=== PATIENT | female | born 1965 | race Caucasian/White ===

== ENCOUNTER 2019-12-28 09:16 | Outpatient (REF) | payer BC, SELFPAY ==
[2019-12-28 11:45] LABS: Cholesterol 188 mg/dL; HDL Cholesterol 57 mg/dL; LDL Cholesterol Calculated 109 mg/dl; Triglycerides 113 mg/dL
[2019-12-28 11:56] LABS: HIV AB/AG Nonreactive (Nonreactive); HIV Num 1 0.05 S/CO (0.00-0.99); ~HepC Num1 0.32 S/CO (0.00-0.79); ~Hepatitis C Antibody Nonreactive (Nonreactive)
[2019-12-28 11:58] LABS: Thyroid Stimulating Hormone 0.76 mIU/mL (0.32-4.0)
== END 2019-12-28 09:17 | disposition home or self-care (01) ==
LOC: HO.HMGCLDS 09:16
PROVIDERS: PCP Internal Medicine; Visit Provider Internal Medicine
DX: Z82.49 Family history of ischemic heart disease and other diseases of the circulatory system (principal); Z11.59 Encounter for screening for other viral diseases
CPT/HCPCS: 80061; 84443; 86803; 87389

== ENCOUNTER 2020-01-04 12:38 | Outpatient (REF) | payer BC, SELFPAY | END 2020-01-04 12:39 | disposition home or self-care (01) | LOC: HO.HMGCLDS 12:38 | PROVIDERS: PCP Internal Medicine; Visit Provider Internal Medicine | DX: Z20.828 Contact with and (suspected) exposure to other viral communicable diseases (principal) | CPT/HCPCS: C9803; U0003 ==

== ENCOUNTER 2021-02-10 07:45 | Outpatient (REF) | payer BC, SELFPAY ==
[2021-02-10 11:30] LABS: MANUAL DIFF FLAG NO
[2021-02-10 11:40] LABS: Basophils Percent Auto 0.5 % (0-2); Eosinophils Absolute Auto 0.1 X10*3/uL (0.0-0.4); Eosinophils Percent Auto 3.4 % (0-4); Hematocrit 40.2 % (37.0-47.0); Hemoglobin 12.4 g/dl (12.0-16.0); Lymphocytes Absolute Auto 1.4 X10*3/uL (1.2-4.9); Lymphocytes Percent Auto 36.6 % (20-40); Mean Corpuscular HGB Conc 30.8 g/dl (31.0-35.0); Mean Corpuscular Volume 77.8 fL (80.0-98.0); Monocytes Absolute Auto 0.4 X10*3/uL (0.1-1.2); Monocytes Percent Auto 9.2 % (2-11); Neutrophils Absolute Auto 1.9 x10*3/uL (2.0-8.3); Neutrophils Percent Auto 50.3 % (45-73); Platelet Count 242 X10*3/uL (160-400); Red Blood Count 5.17 X10*6/uL (4.20-5.50); Red Cell Distribution Width 14.5 % (11.0-16.0); White Blood Count 3.8 X10*3/uL (4.8-10.8)
[2021-02-10 12:00] LABS: Alanine Aminotransferase 29 U/L (0-31); Albumin Level 4.1 g/dL (3.5-5.0); Alkaline Phosphatase 101 U/L (39-117); Anion Gap 10 (12-20); Aspartate Amino Transferase 27 U/L (5-31); Bilirubin Total 0.5 mg/dL (0.0-1.0); Blood Urea Nitrogen 14 mg/dL (9-16); Calcium 9.3 mg/dL (8.4-10.2); Carbon Dioxide 30 mmol/L (22-29); Chloride 105 mmol/L (96-108); Cholesterol 206 mg/dL; Estimated Glomerular Filt Rate > 60; Glucose Random 92 mg/dL (60-115); HDL Cholesterol 57 mg/dL; LDL Cholesterol Calculated 133 mg/dl; Potassium 4.9 mmol/L (3.3-5.1); Sodium 140 mmol/L (135-145); Total Protein 6.9 g/dL (6.5-8.0); Triglycerides 82 mg/dL
[2021-02-10 12:12] LABS: Thyroid Stimulating Hormone 0.95 uIU/mL (0.32-4.0)
== END 2021-02-10 07:46 | disposition home or self-care (01) ==
LOC: HO.HMGCLDS 07:45
PROVIDERS: PCP Internal Medicine; Visit Provider Internal Medicine
DX: E78.00 Pure hypercholesterolemia, unspecified (principal); G43.709 Chronic migraine without aura, not intractable, without status migrainosus
CPT/HCPCS: 36415; 80053; 80061; 84443; 85025

== ENCOUNTER 2022-01-30 14:07 | Emergency (ER) | payer BC, SELFPAY ==
--- NOTE | ~2022-01-30 | XR_ITS ---
EXAMINATION: XR RIBS, LEFT CLINICAL INFORMATION: Injury with pain COMPARISON: April 07, 2017 TECHNIQUE: PA chest and 3 views of the left ribs FINDINGS: There is no evidence of acute parenchymal disease, pneumothorax, or pleural effusion. Heart normal size. No evidence of pulmonary edema. No acute displaced left rib fractures identified. No destructive bony lesion appreciated. XR/XR ribs LT min 3V w CXR1V IMPRESSION: No acute parenchyma disease within the chest. No acute displaced left rib fracture.
[2022-01-30 14:36] VITALS: BP 121/78; PULSE 72; RESP 18; TEMP 36.4; O2SAT 98; BMI 25.0
--- NOTE | 2022-01-30 14:38 | ED_ITS ---
HPI - General Adult General Chief complaint: General Medical <Rosa Chaves NP - Last Filed: 01/30/22 14:39> Stated complaint: rib pain <Rosa Chaves NP - Last Filed: 01/30/22 14:39> Time Seen by Provider: 01/30/22 15:20 <Rosa Chaves NP - Last Filed: 01/30/22 14:39> Source: patient <SERA Samayoa - Last Filed: 01/30/22 16:22> Mode of arrival: ambulatory <SERA Samayoa - Last Filed: 01/30/22 16:22> Limitations: no limitations <SERA Samayoa Last Filed: 01/30/22 16:22> History of Present Illness HPI narrative: 56yoF presenting to the ER with complaints of left lateral rib cage pain for approximately 1 week. She reports that she was walking up the stairs with her laundry and she has the dog gate that she impacted while she was trying to walk up the stairs and since then she has been having pain especially with deep inspiration and palpation to that area. She denies any other injuries complaints or concerns at this time. <SERA Samayoa - Last Filed: 01/30/22 16:22> MD complaint: Left lateral rib cage pain/injury <SERA Samayoa - Last Filed: 01/30/22 16:22> Onset (ago): week(s) (1) <SERA Samayoa - Last Filed: 01/30/22 16:22> Related Data Home medications: Previous Rx's Medication Instructions Recorded cyclobenzaprine 10 mg tablet 10 mg PO Q8H #14 tabs 01/30/22 naproxen 500 mg tablet 500 mg PO BID PRN pain #14 tabs 01/30/22 <Rosa Chaves NP - Last Filed: 01/30/22 14:39> Allergies/adverse reactions: Allergies Allergy/AdvReac Type Severity Reaction Status Date / Time No Known Allergies Allergy Verified 01/30/22 14:35 <Rosa Chaves NP - Last Filed: 01/30/22 14:39> Review of Systems Review of Systems: Constitutional : No Weight loss, No Fever, No Chills, No Night Sweats, No Fatigue, No Malaise ENT/Mouth : No Hearing loss, No Ear Pain, No Nasal Congestion, No Sinus Pain, No Hoarseness, No sore throat, No Rhinorrhea, No Swallowing Difficulty Eyes: No Eye Pain, No Swelling, No Redness, No Foreign Body, No Discharge, No Vision Changes Cardiovascular : No Chest Pain, No SOB, No Dyspnea on Exertion, No Orthopnea, No Edema, No Palpitations Respiratory : No Cough, No Sputum, No Wheezing, No Smoke Exposure, No Dyspnea Gastrointestinal : No Nausea, No Vomiting, No Diarrhea, No Constipation, No abdominal Pain, No Hematochezia, No Melena Genitourinary : no irregular bleeding, No Dysuria, No Urinary Frequency, No Salomon turia, No Urinary Incontinence, No Urgency, No Flank Pain, No Urinary Flow Changes, No Hesitancy Musculoskeletal : + left lateral rib cage joint pain, No Myalgias, No Joint Swelling Skin : No Skin Lesions, No rash Neuro : No Weakness, No Numbness, No Paresthesias, No Loss of Consciousness, No Dizziness, No Headache Psych : No Anxiety/Panic, No Depression, No SI/HI/AH/VH, No Social Issues, Heme/Lymph: No Bruising, No Bleeding,No Lymphadenopathy Endocrine : No Polyuria, No Polydipsia, No Temperature Intolerance <SERA Samayoa - Last Filed: 01/30/22 16:22> Yes all other systems are reviewed and are negative <SERA Samayoa - Last Filed: 01/30/22 16:22> [facility] Past Medical History Attestation statement: The following information was validated with the patient. <SERA Samayoa - Last Filed: 01/30/22 16:22> Source: old records reviewed and nursing notes reviewed <SERA Samayoa - Last Filed: 01/30/22 16:22> Social History Social History: Social History Advance Directives: No Advance Directives Information Provided: No <Rosa Chaves NP - Last Filed: 01/30/22 14:39> Physical Exam ED Vital Signs: Vital Signs - 24 hr 01/30/22 14:36 Temperature 97.5 F Pulse Rate 72 Respiratory Rate 18 Blood Pressure 121/78 Pulse Oximetry 98 Oxygen Delivery Method Room Air BMI result Body Mass Index 25.0 <Rosa Chaves NP - Last Filed: 01/30/22 14:39> Vital Signs - 24 hr 01/30/22 14:36 Temperature 97.5 F Pulse Rate 72 Respiratory Rate 18 Blood Pressure 121/78 Pulse Oximetry 98 Oxygen Delivery Method Room Air BMI result Body Mass Index 25.0 vital signs have been reviewed as normal and appeared to be correct. Blood pressure normal. Heart rate normal. Respiration rate normal. Temperature normal. Oxygen saturation normal. <SERA Samayoa - Last Filed: 01/30/22 16:22> Appearance: Alert. Oriented X3. No acute distress. Head: Normal external exam. Normocephalic. Atraumatic. Eyes: PERRLA. EOMI. Conjunctiva and sclera normal. Eyelids normal. ENT: Pharynx normal. Uvula midline. Moist mucous membranes. No lesions/ulcerations or masses noted on the tongue. Normal voice. No trismus noted. No drooling noted. No muffled voice noted. Neck: Normal inspection. Neck supple. FROM. No adenopathy. Thyroid Normal. No meningeal signs. CVS: Normal heart rate and rhythm. Heart sound normal. Pulses normal throughout. No murmurs/rales/gallops. Respiratory: No respiratory distress. Painless inspiration. Breath sounds normal. No wheezes/rales/rhonchi noted. Chest patient does have tenderness palpation and ecchymosis to the left lateral lower ribcage with some mild soft tissue swelling. No crepitus is noted. No signs of trauma noted. No accessory muscle usage noted or decreased air movement noted. Abdomen: Soft and nontender. Bowel sounds normal in all 4 quadrants. No distention noted. No organomegaly noted. No visible injury noted. Back: Full range of motion noted. Nontender. No signs of trauma. Skin: Skin warm and dry. Normal skin color. Normal skin turgor. No rashes/lesions/lacerations noted. Extremities: Extremities exhibit normal range of motion and nontender. Neuro: Oriented X 3. No motor deficit. No sensory deficit. Reflexes normal. Normal steady gait. No focal neuro deficits noted. CN's II-XII intact bilaterally? <SERA Samayoa - Last Filed: 01/30/22 16:22> Course Course Course Narrative: This is a rapid medical exam. Deferred additional HPI/ROS/PE to primary provider. Left rib pain after injury 1 week ago. Will check x-rays. VSS. <Rosa Chaves NP - Last Filed: 01/30/22 14:39> Reevaluation(s) Reevaluation #1: X-ray negative for any acute processes. Patient most likely muscular skeletal pain. Will DC home with symptomatic treatment instructions return if any new or worsening symptoms follow up with primary care provider. Patient understands agrees with this plan. <SERA Samayoa - Last Filed: 01/30/22 16:22> Time: 16:22 <SERA Samayoa - Last Filed: 01/30/22 16:22> Medical Decision Making Imaging Data Left ribs and chest x-ray: Attestation: I personally reviewed and interpreted this imaging study as follows: <SERA Samayoa - Last Filed: 01/30/22 16:22> Radiologist's impression: FINDINGS: There is no evidence of acute parenchymal disease, pneumothorax, or pleural effusion. Heart normal size. No evidence of pulmonary edema. No acute displaced left rib fractures identified. No destructive bony lesion appreciated. XR/XR ribs LT min 3V w CXR1V IMPRESSION: No acute parenchyma disease within the chest. ? No acute displaced left rib fracture. <SERA Samayoa - Last Filed: 01/30/22 16:22> Discharge Plan Discharge Clinical Impression: Rib pain on left side <Rosa Chaves NP - Last Filed: 01/30/22 14:39> Patient Disposition: Home, Self-Care <Rosa Chaves NP - Last Filed: 01/30/22 14:39> Instructions: Muscle Strain (ED) <Rosa Chaves NP - Last Filed: 01/30/22 14:39> Prescriptions: New naproxen 500 mg tablet 500 mg PO BID PRN (Reason: pain) Qty: 14 0RF cyclobenzaprine 10 mg tablet 10 mg PO Q8H Qty: 14 0RF <Rosa Chaves NP - Last Filed: 01/30/22 14:39> Referrals: Terry Peoples MD [Primary Care Provider] - 3 days <Rosa Chaves NP - Last Filed: 01/30/22 14:39>
== END 2022-01-30 16:31 | disposition home or self-care (01) ==
PROVIDERS: Emergency Provider Emergency Medicine; PCP Internal Medicine
DX: R07.81 Pleurodynia (principal)
CPT/HCPCS: 71101; 99282; 99283

== ENCOUNTER 2022-05-17 13:02 | Inpatient (IN) | payer BC, MEDICARE, SELFPAY ==
[2022-05-17] VITALS (7 sets, daily range): BP systolic 114–140; BP diastolic 71–98; PULSE 78–150; RESP 16–19; TEMP 36.6–37; O2SAT 95–100; BMI 25.4
--- NOTE | ~2022-05-17 | XR_ITS ---
EXAMINATION: XR CHEST CLINICAL INFORMATION: Chest pain, shortness of breath. History right breast cancer status post mastectomy with implant. COMPARISON: Chest radiographs 04/02/2021, 04/07/2017; CTA chest 04/07/2017 TECHNIQUE: Portable upright AP view of the chest was obtained. FINDINGS: There are no significant changes from prior study. Subtle increased attenuation right hemithorax is similar to prior exam and consistent with the unilateral right implant. There are some surgical clips overlying the right upper zone. There is no pneumothorax, pleural reaction, airspace consolidation, air bronchogram, or effusion. The heart is normal in size. The vascularity is normal. The hilar and mediastinal contours and bony structures are unremarkable. XR/XR chest 1V IMPRESSION: No acute intrathoracic disease. No pneumothorax, airspace consolidation, or effusion.
--- NOTE | 2022-05-17 13:07 | ECG_ITS ---
Test Reason : chest tightness Blood Pressure : / mmHG Vent. Rate : 151 BPM Atrial Rate : 151 BPM P-R Int : 098 ms QRS Dur : 140 ms QT Int : 278 ms P-R-T Axes : 094 019 -75 degrees QTc Int : 440 ms Typical atrial flutter with 2:1 conduction Nonspecific T wave abnormality Abnormal ECG No previous ECGs available Referred By: Andrés Robbins Electronically Signed By:MAIDA MEDINA MD
--- NOTE | 2022-05-17 13:08 | ED.CHESTPAIN ---
HPI - Chest Pain General Chief Complaint: Chest Pain <SERA Valerio - Last Filed: 05/17/22 13:09> Stated Complaint: sob, chest discomfort <SERA Valerio - Last Filed: 05/17/22 13:09> Time Seen by Provider: 05/17/22 13:21 <SERA Valerio - Last Filed: 05/17/22 13:09> Source: patient <Lizette Geiger MD - Last Filed: 05/17/22 16:27> Mode of arrival: ambulatory <Lizette Geiger MD - Last Filed: 05/17/22 16:27> Limitations: no limitations <Lizette Geiger MD - Last Filed: 05/17/22 16:27> History of Present Illness HPI narrative: Patient comes to the emergency room complaining of 3 days of palpitations. Patient states that today she started exercising, doing aerobics, patient had worsening shortness of breath. Patient states that she does not have significant chest pain but she feels a weird sensation in her chest which is new for her. Patient denies any other symptoms <Lizette Geiger MD - Last Filed: 05/17/22 16:27> Related Data Home Medications: Previous Rx's Medication Instructions Recorded cyclobenzaprine 10 mg tablet 10 mg PO Q8H #14 tabs 01/30/22 naproxen 500 mg tablet 500 mg PO BID PRN pain #14 tabs 01/30/22 <SERA Valerio - Last Filed: 05/17/22 13:09> Allergies/Adverse Reactions: Allergies Allergy/AdvReac Type Severity Reaction Status Date / Time No Known Allergies Allergy Verified 05/17/22 13:08 <SERA Valerio - Last Filed: 05/17/22 13:09> Review of Systems Review of Systems: Constitutional : No Weight loss, No Fever, No Chills, No Night Sweats, No Fatigue, No Malaise ENT/Mouth : No Hearing loss, No Ear Pain, No Nasal Congestion, No Sinus Pain, No Hoarseness, No sore throat, No Rhinorrhea, No Swallowing Difficulty Eyes: No Eye Pain, No Swelling, No Redness, No Foreign Body, No Discharge, No Vision Changes Cardiovascular : No Chest Pain but complaining of a week incision at the chest, dyspnea with exertion, no orthopnea, no edema, complaining of ongoing palpitations Respiratory : No Cough, No Sputum, No Wheezing, No Smoke Exposure, No Dyspnea Gastrointestinal : No Nausea, No Vomiting, No Diarrhea, No Constipation, No abdominal Pain, No Hematochezia, No Melena Genitourinary : no irregular bleeding, No Dysuria, No Urinary Frequency, No Hematuria, No Urinary Incontinence, No Urgency, No Flank Pain, No Urinary Flow Changes, No Hesitancy Musculoskeletal : No joint pain, No Myalgias, No Joint Swelling Skin : No Skin Lesions, No rash Neuro : No Weakness, No Numbness, No Paresthesias, No Loss of Consciousness, No Dizziness, No Headache Psych : No Anxiety/Panic, No Depression, No SI/HI/AH/VH, No Social Issues, Heme/Lymph: No Bruising, No Bleeding,No Lymphadenopathy Endocrine : No Polyuria, No Polydipsia, No Temperature Intolerance <Lizette Geiger MD - Last Filed: 05/17/22 16:27> FOR[facility]LY [facility] Past Medical History Medical History: Medical History Breast cancer Glioma of brain <SERA Valerio - Last Filed: 05/17/22 13:09> Social History Social History: Social History Alcohol intake: unknown Smoked in Last 30 Days: No Use of substances other than those prescribed or required for medical reasons: Unknown Advance Directives: No Advance Directives Information Provided: No Patient : No <SERA Valerio - Last Filed: 05/17/22 13:09> Physical Exam Vital Signs: Vital Signs: Last Vital Signs Temp 98 F 05/17/22 13:08 Pulse 78 05/17/22 15:39 Resp 16 05/17/22 15:39 BP 126/84 05/17/22 15:39 Pulse Ox 98 05/17/22 15:39 O2 Del Method 05/17/22 15:39 BMI result Body Mass Index 25.4 <SERA Valerio - Last Filed: 05/17/22 13:09> Vital Signs: Last Vital Signs Temp 98 F 05/17/22 13:08 Pulse 78 03/20/23 15:39 Resp 16 05/17/22 15:39 BP 126/84 05/17/22 15:39 Pulse Ox 98 05/17/22 15:39 O2 Del Method 05/17/22 15:39 BMI result Body Mass Index 25.4 <Lizette Geiger MD - Last Filed: 05/17/22 16:27> Const: Other: Appearance: Alert. Oriented X3. No acute distress. Eyes: Pupils equal, round and reactive to light. ENT: Pharynx normal. Neck: Normal inspection. Neck supple. No lymph nodes noted. No crepitus CVS: Tachycardic, regular rhythm, heart rate 150 Pulses normal. Normal S1 and S2 Respiratory: No respiratory distress. Breath sounds normal. No Wheezing. No rales Abdomen: Soft and nontender. No rigidity. No distention. Skin: Skin warm and dry. Normal skin color. Normal skin turgor. Extremities: No lower extremity edema. No Lacerations. No Rash Neuro: Oriented X 3. No motor deficit. No sensory deficit. Moving all extremities. No slurred speech. CN 2 through 12 grossly intact Psych: calm, cooperative, normal affect <Lizette Geiger MD - Last Filed: 05/17/22 16:27> Course Course Course Narrative: This is an RME: Additional HPI, ROS, PE not included below will be deferred to primary provider. This is a 57-year-old female history of a glioma in breast cancer presenting to the emergency department with complaints of intermittent chest discomfort, shortness of breath times a few days worsening today. Patient tells me today she was participating in a cardiac workout and all the sudden she felt short of breath like she was going to syncopize. Patient tells me chest pain was worse after working out. Patient also tells me that shortness of breath was very bad and that is when she felt like she was going to pass out. Significant cardiac history, her sibling had a massive heart attack at the age of 56, early cardiac in the family is present. Patient is not a smoker. Denies fevers, chills, nausea, vomiting, headache, vision changes, dizziness, no long travel. Physical exam benign Plan at this time cardiac workup. Will order D-dimer concerns for PE. <SERA Valerio - Last Filed: 05/17/22 13:09> Medications Administered Discontinued Medications Generic Name Dose Route Start Last Admin Trade Name Freq PRN Reason Stop Dose Admin Adenosine 6 mg 05/17/22 13:50 05/17/22 14:11 Adenosine 6 Mg/2 Ml Vial IVPUSH 05/17/22 13:51 6 mg ONCE ONE Administration Adenosine 12 mg 05/17/22 14:14 05/17/22 14:35 Adenosine 6 Mg/2 Ml Vial IVPUSH 05/17/22 14:15 12 mg ONCE ONE Administration Diltiazem HCl 10 mg 05/17/22 15:02 05/17/22 15:15 Diltiazem Hcl 50 Mg/10 Ml Vial IVPUSH 05/17/22 15:03 10 mg STAT STA Administration Sodium Chloride 1,000 mls @ 999 mls/hr 05/17/22 13:50 05/17/22 15:39 Ns IVCONT 05/17/22 14:50 Infused .Q1H1M ONE Infusion Metoprolol Tartrate 5 mg 05/17/22 14:13 05/17/22 14:36 Metoprolol Tartrate 5 Mg/5 Ml Vial IVPUSH 05/17/22 14:14 5 mg ONCE ONE Administration <Andrés oRbbins PA - Last Filed: 05/17/22 13:09> Medications Administered Discontinued Medications Generic Name Dose Route Start Last Admin Trade Name Skyla PRN Reason Stop Dose Admin Adenosine 6 mg 05/17/22 13:50 05/17/22 14:11 Adenosine 6 Mg/2 Ml Vial IVPUSH 05/17/22 13:51 6 mg ONCE ONE Administration Adenosine 12 mg 05/17/22 14:14 05/17/22 14:35 Adenosine 6 Mg/2 Ml Vial IVPUSH 05/17/22 14:15 12 mg ONCE ONE Administration Diltiazem HCl 10 mg 05/17/22 15:02 05/17/22 15:15 Diltiazem Hcl 50 Mg/10 Ml Vial IVPUSH 05/17/22 15:03 10 mg STAT STA Administration Sodium Chloride 1,000 mls @ 999 mls/hr 05/17/22 13:50 05/17/22 15:39 Ns IVCONT 05/17/22 14:50 Infused .Q1H1M ONE Infusion Metoprolol Tartrate 5 mg 05/17/22 14:13 05/17/22 14:36 Metoprolol Tartrate 5 Mg/5 Ml Vial IVPUSH 05/17/22 14:14 5 mg ONCE ONE Administration <Lizette Geiger MD - Last Filed: 05/17/22 16:27> Medical Decision Making Medical Decision Making [facility] Narrative: -patient was given 6 mg of adenosine without any significant results. A 2nd dose of 12 mg of adenosine was given, heart rate slowed down enough to see that the patient has underlying atrial flutter. -patient received 1 dose of 5 mg IV metoprolol, the heart rate improved from 150 to approximately 110. Blood pressure 121/83 -patient now receiving 1 dose of Cardizem IV 10 mg -patient feeling well, no chest pain or shortness of breath at this time -my interpretation of EKG 1. On arrival, questionable rhythm, SVT versus AFib versus a flutter, heart rate 151, QTC 440 -my interpretation of EKG #2: Atrial flutter, heart rate 93, no ST depressions, no T-wave inversions, QTC 348 -patient's current heart rate 78, blood pressure 126/84. Patient still feeling palpitations, no chest pain or shortness of breath -I discussed the patient with Dr. Donaldson from Cardiology. Patient will be started on Xarelto, patient to be NPO after midnight as she may need to be cardioverted in the morning. -I discussed the above-mentioned with the patient, patient agreeable with plan. I also discussed with the patient risks versus benefits of starting a new blood thinner, patient agrees to start Xarelto -I discussed the patient with Dr. Thomas, patient being admitted <Lizette Geiger MD - Last Filed: 05/17/22 16:27> Differential Diagnosis Differential Diagnoses: The differential diagnosis associated with the presentation includes (SVT, AFib, atrial flutter) <Lizette Geiger MD - Last Filed: 05/17/22 16:27> Admission/Observation Consideration of admission/observation: Escalation of care including admission/observation considered <Lizette Geiger MD - Last Filed: 05/17/22 16:27> Consult Healthcare Provider Management of the patient was discussed with: Hospitalist and Customs Investigator <Lizette Geiger MD - Last Filed: 05/17/22 16:27> Lab Data [facility] Lab Attestation statement: I reviewed the patient's lab results. <Lizette Geiger MD - Last Filed: 05/17/22 16:27> Result Diagrams: 05/17/22 13:36 05/17/22 13:36 <SERA Valerio - Last Filed: 05/17/22 13:09> Labs: Lab Results 05/17/22 05/17/22 05/17/22 Range/Units 13:36 13:36 13:36 WBC 6.4 (4.8-10.8) X10*3/uL RBC 5.75 H (4.20-5.50) X10*6/uL Hgb 13.8 (12.0-16.0) g/dl Hct 43.4 (37.0-47.0) % MCV 75.5 L (80.0-98.0) fL MCH 24.0 L (27.0-33.0) pg MCHC 31.8 (31.0-35.0) g/dl RDW 13.8 (11.0-16.0) % Plt Count 260 (160-400) X10*3/uL MPV 9.5 (9.4-12.3) fL Immature Gran % (Auto) 0.2 (0.0-0.4) % Neut % (Auto) 68.6 (45-73) % Lymph % (Auto) 25.3 (20-40) % [place] % (Auto) 5.3 (2-11) % Eos % (Auto) 0.3 (0-4) % Baso % (Auto) 0.3 (0-2) % Lymph # (Auto) 1.6 (1.2-4.9) X10*3/uL [place] # (Auto) 0.3 (0.1-1.2) X10*3/uL Eos # (Auto) 0.0 (0.0-0.4) X10*3/uL Baso # (Auto) 0.0 (0.0-0.2) X10*3/uL Abs Immat Gran (auto) 0.01 (0.00-0.03) X10*3/uL Absolute Neuts (auto) 4.4 (2.0-8.3) x10*3/uL Absolute Nucleated RBC 0.000 (0.0-0.012) X10*3/uL Nucleated RBC % (auto) 0.0 (0.0-0.2) /100WBC PT 11.0 (10.0-13.1) SEC INR 1.0 (0.9-1.1) D-Dimer High Sensitivty < 150 NG/ML Sodium 141 (135-145) mmol/L Potassium 4.5 (3.3-5.1) mmol/L Chloride 101 (96-108) mmol/L Carbon Dioxide 29 (22-29) mmol/L Anion Gap 16 (12-20) BUN 14 (9-16) mg/dL Creatinine 0.84 (0.5-1.4) mg/dL Estim Creat Clear Calc 71.4 Estimated GFR > 60 Random Glucose 107 (60-115) mg/dL Calcium 10.0 D (8.4-10.2) mg/dL Magnesium 2.1 (1.6-2.6) mg/dL Total Bilirubin 0.9 (0.0-1.0) mg/dL AST 26 (5-31) U/L ALT 22 (0-31) U/L Alkaline Phosphatase 117 (39-117) U/L Total Creatine Kinase 109 (26-140) U/L Troponin I High Sens (<3.5-17.0) ng/L B-Natriuretic Peptide (<100) pg/mL Total Protein 7.7 (6.5-8.0) g/dL Albumin 4.7 (3.5-5.0) g/dL COVID-19 ([facility]) (Negative) COVID-19 Clin Com 05/17/22 05/17/22 05/17/22 Range/Units 13:36 13:36 13:36 WBC (4.8-10.8) X10*3/uL RBC (4.20-5.50) X10*6/uL Hgb (12.0-16.0) g/dl Hct (37.0-47.0) % MCV (80.0-98.0) fL MCH (27.0-33.0) pg MCHC (31.0-35.0) g/dl RDW (11.0-16.0) % Plt Count (160-400) X10*3/uL MPV (9.4-12.3) fL Immature Gran % (Auto) (0.0-0.4) % Neut % (Auto) (45-73) % Lymph % (Auto) (20-40) % [place] % (Auto) (2-11) % Eos % (Auto) (0-4) % Baso % (Auto) (0-2) % Lymph # (Auto) (1.2-4.9) X10*3/uL [place] # (Auto) (0.1-1.2) X10*3/uL Eos # (Auto) (0.0-0.4) X10*3/uL Baso # (Auto) (0.0-0.2) X10*3/uL Abs Immat Gran (auto) (0.00-0.03) X10*3/uL Absolute Neuts (auto) (2.0-8.3) x10*3/uL Absolute Nucleated RBC (0.0-0.012) X10*3/uL Nucleated RBC % (auto) (0.0-0.2) /100WBC PT (10.0-13.1) SEC INR (0.9-1.1) D-Dimer High Sensitivty NG/ML Sodium (135-145) mmol/L Potassium (3.3-5.1) mmol/L Chloride (96-108) mmol/L Carbon Dioxide (22-29) mmol/L Anion Gap (12-20) BUN (9-16) mg/dL Creatinine (0.5-1.4) mg/dL Estim Creat Clear Calc Estimated GFR Random Glucose (60-115) mg/dL Calcium (8.4-10.2) mg/dL Magnesium (1.6-2.6) mg/dL Total Bilirubin (0.0-1.0) mg/dL AST (5-31) U/L ALT (0-31) U/L Alkaline Phosphatase (39-117) U/L Total Creatine Kinase (26-140) U/L Troponin I High Sens 3.6 (<3.5-17.0) ng/L B-Natriuretic Peptide 224 H (<100) pg/mL Total Protein (6.5-8.0) g/dL Albumin (3.5-5.0) g/dL COVID-19 ([facility]) Negative (Negative) COVID-19 Clin Com See Note <SERA Valerio - Last Filed: 05/17/22 13:09> Lab Results 05/17/22 05/17/22 05/17/22 Range/Units 13:36 13:36 13:36 WBC 6.4 (4.8-10.8) X10*3/uL RBC 5.75 H (4.20-5.50) X10*6/uL Hgb 13.8 (12.0-16.0) g/dl Hct 43.4 (37.0-47.0) % MCV 75.5 L (80.0-98.0) fL MCH 24.0 L (27.0-33.0) pg MCHC 31.8 (31.0-35.0) g/dl RDW 13.8 (11.0-16.0) % Plt Count 260 (160-400) X10*3/uL MPV 9.5 (9.4-12.3) fL Immature Gran % (Auto) 0.2 (0.0-0.4) % Neut % (Auto) 68.6 (45-73) % Lymph % (Auto) 25.3 (20-40) % [place] % (Auto) 5.3 (2-11) % Eos % (Auto) 0.3 (0-4) % Baso % (Auto) 0.3 (0-2) % Lymph # (Auto) 1.6 (1.2-4.9) X10*3/uL [place] # (Auto) 0.3 (0.1-1.2) X10*3/uL Eos # (Auto) 0.0 (0.0-0.4) X10*3/uL Baso # (Auto) 0.0 (0.0-0.2) X10*3/uL Abs Immat Gran (auto) 0.01 (0.00-0.03) X10*3/uL Absolute Neuts (auto) 4.4 (2.0-8.3) x10*3/uL Absolute Nucleated RBC 0.000 (0.0-0.012) X10*3/uL Nucleated RBC % (auto) 0.0 (0.0-0.2) /100WBC PT 11.0 (10.0-13.1) SEC INR 1.0 (0.9-1.1) D-Dimer High Sensitivty < 150 NG/ML Sodium 141 (135-145) mmol/L Potassium 4.5 (3.3-5.1) mmol/L Chloride 101 (96-108) mmol/L Carbon Dioxide 29 (22-29) mmol/L Anion Gap 16 (12-20) BUN 14 (9-16) mg/dL Creatinine 0.84 (0.5-1.4) mg/dL Estim Creat Clear Calc 71.4 Estimated GFR > 60 Random Glucose 107 (60-115) mg/dL Calcium 10.0 D (8.4-10.2) mg/dL Magnesium 2.1 (1.6-2.6) mg/dL Total Bilirubin 0.9 (0.0-1.0) mg/dL AST 26 (5-31) U/L ALT 22 (0-31) U/L Alkaline Phosphatase 117 (39-117) U/L Total Creatine Kinase 109 (26-140) U/L Troponin I High Sens (<3.5-17.0) ng/L B-Natriuretic Peptide (<100) pg/mL Total Protein 7.7 (6.5-8.0) g/dL Albumin 4.7 (3.5-5.0) g/dL COVID-19 ([facility]) (Negative) COVID-19 Clin Com 05/17/22 05/17/22 05/17/22 Range/Units 13:36 13:36 13:36 WBC (4.8-10.8) X10*3/uL RBC (4.20-5.50) X10*6/uL Hgb (12.0-16.0) g/dl Hct (37.0-47.0) % MCV (80.0-98.0) fL MCH (27.0-33.0) pg MCHC (31.0-35.0) g/dl RDW (11.0-16.0) % Plt Count (160-400) X10*3/uL MPV (9.4-12.3) fL Immature Gran % (Auto) (0.0-0.4) % Neut % (Auto) (45-73) % Lymph % (Auto) (20-40) % [place] % (Auto) (2-11) % Eos % (Auto) (0-4) % Baso % (Auto) (0-2) % Lymph # (Auto) (1.2-4.9) X10*3/uL [place] # (Auto) (0.1-1.2) X10*3/uL Eos # (Auto) (0.0-0.4) X10*3/uL Baso # (Auto) (0.0-0.2) X10*3/uL Abs Immat Gran (auto) (0.00-0.03) X10*3/uL Absolute Neuts (auto) (2.0-8.3) x10*3/uL Absolute Nucleated RBC (0.0-0.012) X10*3/uL Nucleated RBC % (auto) (0.0-0.2) /100WBC PT (10.0-13.1) SEC INR (0.9-1.1) D-Dimer High Sensitivty NG/ML Sodium (135-145) mmol/L Potassium (3.3-5.1) mmol/L Chloride (96-108) mmol/L Carbon Dioxide (22-29) mmol/L Anion Gap (12-20) BUN (9-16) mg/dL Creatinine (0.5-1.4) mg/dL Estim Creat Clear Calc Estimated GFR Random Glucose (60-115) mg/dL Calcium (8.4-10.2) mg/dL Magnesium (1.6-2.6) mg/dL Total Bilirubin (0.0-1.0) mg/dL AST (5-31) U/L ALT (0-31) U/L Alkaline Phosphatase (39-117) U/L Total Creatine Kinase (26-140) U/L Troponin I High Sens 3.6 (<3.5-17.0) ng/L B-Natriuretic Peptide 224 H (<100) pg/mL Total Protein (6.5-8.0) g/dL Albumin (3.5-5.0) g/dL COVID-19 ([facility]) Negative (Negative) COVID-19 Clin Com See Note <Lizette Geiger MD - Last Filed: 05/17/22 16:27> Independent Interpretation I performed an independent interpretation of an: Plain X-Ray (My interpretation of chest x-ray: No acute findings, no edema or infiltrates) <Lizette Geiger MD - Last Filed: 05/17/22 16:27> Radiology Impression Discussion of test interpretation with radiology: I have reviewed the radiologist's reading. <Lizette Geiger MD - Last Filed: 05/17/22 16:27> Radiologist Impression: There are no significant changes from prior study. Subtle increased attenuation right hemithorax is similar to prior exam and consistent with the unilateral right implant. There are some surgical clips overlying the right upper zone. There is no pneumothorax, pleural reaction, airspace consolidation, air bronchogram, or effusion. The heart is normal in size. The vascularity is normal. The hilar and mediastinal contours and bony structures are unremarkable. XR/XR chest 1V IMPRESSION: No acute intrathoracic disease. No pneumothorax, airspace consolidation, or effusion. <Lizette Geiger MD - Last Filed: 05/17/22 16:27> Critical Care Time Critical Care Time Critical Care Time: Yes <Lizette Geiger MD - Last Filed: 05/17/22 16:27> Total Critical Care Time: 60 <Lizette Geiger MD - Last Filed: 05/17/22 16:27> Attestation: I have personally provided critical care time. Time includes review of lab data, radiology results, discussion with consultants, and monitoring for potential decompensation. Intervention performed as documented. <Lizette Geiger MD - Last Filed: 05/17/22 16:27> Discharge Plan Discharge Clinical Impression: New onset atrial flutter <SERA Valerio - Last Filed: 05/17/22 13:09> Patient Disposition: Admitted As Inpatient <SERA Valerio - Last Filed: 05/17/22 13:09> Prescriptions: No Action naproxen 500 mg tablet 500 mg PO BID PRN (Reason: pain) Qty: 14 0RF cyclobenzaprine 10 mg tablet 10 mg PO Q8H Qty: 14 0RF <SERA Valerio - Last Filed: 05/17/22 13:09>
[2022-05-17 13:43] LABS: MANUAL DIFF FLAG NO
[2022-05-17 13:46] LABS: Basophils Percent Auto 0.3 % (0-2); Eosinophils Percent Auto 0.3 % (0-4); Hematocrit 43.4 % (37.0-47.0); Hemoglobin 13.8 g/dl (12.0-16.0); Imm Gran Abs Auto 0.01 X10*3/uL (0.00-0.03); Imm Gran Pct Auto 0.2 % (0.0-0.4); Lymphocytes Absolute Auto 1.6 X10*3/uL (1.2-4.9); Lymphocytes Percent Auto 25.3 % (20-40); Mean Corpuscular HGB Conc 31.8 g/dl (31.0-35.0); Mean Corpuscular Volume 75.5 fL (80.0-98.0); Mean Platelet Volume 9.5 fL (9.4-12.3); Monocytes Absolute Auto 0.3 X10*3/uL (0.1-1.2); Monocytes Percent Auto 5.3 % (2-11); Neutrophils Absolute Auto 4.4 x10*3/uL (2.0-8.3); Neutrophils Percent Auto 68.6 % (45-73); Platelet Count 260 X10*3/uL (160-400); Red Blood Count 5.75 X10*6/uL (4.20-5.50); Red Cell Distribution Width 13.8 % (11.0-16.0); White Blood Count 6.4 X10*3/uL (4.8-10.8)
[2022-05-17 13:58] LABS: COVID-19 Test Negative (Negative); IDNOW Serial# BCCEAD1C
[2022-05-17 14:05] LABS: D Dimer High Sensitivity < 150 NG/ML
[2022-05-17] MEDS: Adenosine 6 MG/2 ML VIAL IVPUSH (14:11)
[2022-05-17] MEDS: 0.9 % Sodium Chloride 1,000 ML 999 ML IVCONT (14:12)
[2022-05-17 14:13] LABS: B Type Natriuretic Peptide 224 pg/mL (<100)
--- NOTE | 2022-05-17 14:14 | ECG_ITS ---
Test Reason : repeat Blood Pressure : / mmHG Vent. Rate : 093 BPM Atrial Rate : 315 BPM P-R Int : 000 ms QRS Dur : 074 ms QT Int : 280 ms P-R-T Axes : 000 066 051 degrees QTc Int : 348 ms Atrial flutter with variable A-V block with premature ventricular or aberrantly conducted complexes Nonspecific ST and T wave abnormality Abnormal ECG When compared with ECG of 17-MAY-2022 13:16, Vent. rate has decreased BY 58 BPM QRS duration has decreased Nonspecific T wave abnormality, improved in Inferior leads Nonspecific T wave abnormality, improved in Lateral leads Referred By: Lizette Geiger Electronically Signed By:MAIDA MEDINA MD
[2022-05-17 14:15] LABS: Troponin-I High Sensitivity 3.6 ng/L (<3.5-17.0)
[2022-05-17 14:17] LABS: Alanine Aminotransferase 22 U/L (0-31); Albumin Level 4.7 g/dL (3.5-5.0); Alkaline Phosphatase 117 U/L (39-117); Anion Gap 16 (12-20); Aspartate Amino Transferase 26 U/L (5-31); Bilirubin Total 0.9 mg/dL (0.0-1.0); Blood Urea Nitrogen 14 mg/dL (9-16); Carbon Dioxide 29 mmol/L (22-29); Chloride 101 mmol/L (96-108); Creatinine Clr Calc Pharmacy 71.4; Estimated Glomerular Filt Rate > 60; Glucose Random 107 mg/dL (60-115); Magnesium 2.1 mg/dL (1.6-2.6); Potassium 4.5 mmol/L (3.3-5.1); Sodium 141 mmol/L (135-145); Total Protein 7.7 g/dL (6.5-8.0)
[2022-05-17] MEDS: Adenosine 6 MG/2 ML VIAL 12 MG IVPUSH (14:35)
[2022-05-17] MEDS: Metoprolol Tartrate 5 MG/5 ML VIAL IVPUSH ×2 (14:36→19:41)
[2022-05-17] MEDS: dilTIAZem HCL 50 MG/10 ML VIAL 10 MG IVPUSH (15:15)
[2022-05-17] MEDS: Rivaroxaban 20 MG TABLET PO (16:44)
--- NOTE | 2022-05-17 17:57 | PHA.MEDREC ---
Pharmacy Consult ? Medication Reconciliation Pharmacy has completed the medication reconciliation.
--- NOTE | 2022-05-17 18:20 | P.HPHOSP_ITS ---
History of Present Illness Date of Service: 05/17/22 Attending physician on admission: Zulma Thomas Chief Complaint: sob, chest pressure 57-year-old female with history of right breast cancer s/p mastectomy, history of glioma, history of lung nodules, who is a former smoker presented to the ED earlier today for evaluation of dyspnea, palpitations, and chest pressure that started this morning. She states she was doing a cardiac workout and developed significant shortness of breath. She stops to rest without resolution of symptoms and developed palpitations, lightheadedness with near syncope, and chest pressure without radiation. She states she had 2 similar episodes remotely that resolved spontaneously. She does have significant family cardiac history with brother who had a massive heart attack at 56, mother has atrial fibrillation, and maternal grandmother with MA. On arrival, patient tachycardic to 150, mildly hypertensive at 140/98. No hypoxia. EKG showed atrial further, rate 151. Chest x-ray negative. Hematology studies unremarkable. Coags normal with D-dimer less than 150. Renal function electrolytes normal. Troponin negative. BNP 224. Negative for COVID-19. Patient initially treated with 6 mg adenosine, repeated with 12 mg adenosine, 5 mg Lopressor, and 10 mg diltiazem with improvement in heart rate is 0 atrial flutter persists. She was also given 20 mg Xarelto. Case was discussed with Cardiology with plan for admission to medicine with cardioversion tomorrow. Review of Systems Review of Systems: Yes all other systems are reviewed and are negative [facility] Medical History Breast cancer Glioma of brain Family History Brother Myocardial infarction Maternal Grandmother Myocardial infarction Mother Atrial fibrillation Social History Household Members: Spouse and Children Housing: House Do you presently have visiting nurse or other home services: No Alcohol intake: unknown Patient Tobacco Use Status: Former Tobacco user Smoked in Last 30 Days: No Use of substances other than those prescribed or required for medical reasons: No Have you been hit, kicked, punched, or otherwise hurt by someone within the past year? If so, by whom?: No Do you feel safe in your current relationship?: Yes Is there a partner from a previous relationship who is making you feel unsafe now?: No Are you made to feel afraid or neglected: No Advance Directives: No Advance Directives Information Provided: No Do you have thoughts of harming others: None Do you have a plan to hurt others: No Plan Recently lost weight without trying: No Nutrition Risks: No Nutritional Risk Patient : No : No Poor oral hygiene: No Meds Allergies Allergy/AdvReac Type Severity Reaction Status Date / Time No Known Allergies Allergy Verified 05/17/22 13:08 Active Medications: Current Medications Acetaminophen (Acetaminophen 325 Mg Tablet) 650 mg PO Q6H PRN PRN Reason: Pain, Mild (Pain Scale 1-3) Enoxaparin Sodium (Enoxaparin Sodium 80 Mg/0.8 Ml Syringe) 70 mg SUBCUT Q12H MARIE Ondansetron HCl (Ondansetron Hcl 4 Mg/2 Ml Vial) 4 mg IVPUSH Q8H PRN PRN Reason: Nausea and Vomiting Pharmacy Consult (Consult Rx Perform Med Rec) 1 each MISCELLANE ONCE PRN PRN Reason: Consult order Sodium Chloride (0.9 % Sodium Chloride Flush 3 Ml Syringe) 3 ml IVFLUSH QSHIFT [facility] Home Medications Medication Instructions Recorded Confirmed Last Taken Type Lactobacillus acidophilus 10 10,000 mmu cells PO DAILY 05/17/22 05/17/22 Unknown History billion cell capsule (Probiotic) cholecalciferol (vitamin D3) 25 25 mcg PO DAILY 05/17/22 05/17/22 Unknown History mcg (1,000 unit) tablet lorazepam 0.5 mg tablet 1 tab PO BID PRN anxiety/sleep 05/17/22 05/17/22 Unknown History magnesium oxide 400 mg PO BID 05/17/22 05/17/22 Unknown History multivitamin 1 tab PO DAILY 05/17/22 05/17/22 Unknown History sumatriptan succinate 50 mg tablet 50 mg PO DAILY MRX1 05/17/22 05/17/22 Unknown History Physical Exam Vital Signs and Narrative: Vital Signs: Last Vital Signs Temp 98 F 05/17/22 13:08 Pulse 80 05/17/22 16:44 Resp 16 05/17/22 16:44 BP 126/84 05/17/22 16:44 Pulse Ox 98 05/17/22 16:44 O2 Del Method 05/17/22 16:44 BMI result Body Mass Index 25.4 Constitutional - Awake and Alert, No apparent distress Eyes - PERRLA, EOMI Cardiovascular - S1S2, RRR, No edema Respiratory - Normal lung expansion, Normal respiratory effort, No respiratory distress, CTA bilaterally Gastrointestinal - NT / ND; +BS; No rebound or guarding Extremities - no calf tenderness bilaterally, no swelling Skin - Warm/Dry Neurological - Alert & oriented x3, CN II-XII in tact, 5/5 strength BUE and BLE Psychological - Appropriate affect Results Labs 05/17/22 13:36 05/17/22 13:36 Labs: Laboratory Results - last 24 hr 05/17/22 05/17/22 05/17/22 13:36 13:36 13:36 MCV 75.5 L MCH 24.0 L MCHC 31.8 RDW 13.8 Plt Count 260 MPV 9.5 Immature Gran % (Auto) 0.2 Neut % (Auto) 68.6 Lymph % (Auto) 25.3 [place] % (Auto) 5.3 Eos % (Auto) 0.3 Baso % (Auto) 0.3 Lymph # (Auto) 1.6 [place] # (Auto) 0.3 Eos # (Auto) 0.0 Baso # (Auto) 0.0 Abs Immat Gran (auto) 0.01 Absolute Neuts (auto) 4.4 Absolute Nucleated RBC 0.000 Nucleated RBC % (auto) 0.0 PT 11.0 INR 1.0 D-Dimer High Sensitivty < 150 Anion Gap 16 Estim Creat Clear Calc 71.4 Estimated GFR > 60 Random Glucose 107 Calcium 10.0 D Magnesium 2.1 Total Bilirubin 0.9 AST 26 ALT 22 Alkaline Phosphatase 117 Total Creatine Kinase 109 Troponin I High Sens B-Natriuretic Peptide Total Protein 7.7 Albumin 4.7 COVID-19 ([facility]) COVID-19 Clin Com 05/17/22 05/17/22 05/17/22 13:36 13:36 13:36 MCV MCH MCHC RDW Plt Count MPV Immature Gran % (Auto) Neut % (Auto) Lymph % (Auto) [place] % (Auto) Eos % (Auto) Baso % (Auto) Lymph # (Auto) [place] # (Auto) Eos # (Auto) Baso # (Auto) Abs Immat Gran (auto) Absolute Neuts (auto) Absolute Nucleated RBC Nucleated RBC % (auto) PT INR D-Dimer High Sensitivty Anion Gap Estim Creat Clear Calc Estimated GFR Random Glucose Calcium Magnesium Total Bilirubin AST ALT Alkaline Phosphatase Total Creatine Kinase Troponin I High Sens 3.6 B-Natriuretic Peptide 224 H Total Protein Albumin COVID-19 ([facility]) Negative COVID-19 Clin Com See Note Imaging Radiologist's Impressions: Impressions Chest X-Ray 05/17/22 13:53 IMPRESSION: No acute intrathoracic disease. No pneumothorax, airspace consolidation, or effusion. Assessment and Plan (1) New onset atrial flutter: Status: Acute Plan 57-year-old female with history of right breast cancer s/p mastectomy, history of glioma, history of lung nodules, who is a former smoker admitted for new onset atrial flutter # new onset atrial flutter -rate now controlled-treated in ED with 6 mg adenosine, 12 mg adenosine, 5 mg Lopressor, 10 mg diltiazem -plan for cardioversion tomorrow per Cardiology -received single dose of Xarelto prior to cardioversion. Initiate therapeutic Lovenox am -initiate metoprolol 25 mg b.i.d. -echocardiogram ordered -appreciate cardiology input -NPO after midnight -admit to telemetry #Anxiety -continue lorazepam #hx right breast cancer -s/p mastectomy -follows with [facility] DVT prophylaxis-Lovenox Full code Patient requires inpatient stay of at least 2 midnights for management of new onset atrial flutter requiring close cardiac monitoring and cardioversion with expert consultation Time Spent With Patient Time: Total time managing care of this patient today ____ minutes. Quality Stroke Does the patient have a stroke diagnosis?: No VTE Prior VTE?: No VTE Risk Level:: Medical - moderate - high VTE Device Contraindication: Treatment Not Indicated VTE Drug Contraindication: N/A - Med Ordered
[2022-05-17] MEDS: Magnesium Oxide 400 MG TABLET PO (19:41)
[2022-05-17] MEDS: 0.9 % Sodium Chloride Flush 3 ML SYRINGE IVFLUSH (19:42)
[2022-05-17] MEDS: Metoprolol Tartrate 25 MG TABLET PO (22:10)
[2022-05-17] MEDS: LORazepam 0.5 MG TABLET PO (23:28)
[2022-05-18] VITALS: BP 103/62; PULSE 82; RESP 16; TEMP 36.2; O2SAT 96
--- NOTE | 2022-05-18 | ECG_ITS ---
Test Reason : Rhythm change Blood Pressure : / mmHG Vent. Rate : 082 BPM Atrial Rate : 082 BPM P-R Int : 150 ms QRS Dur : 080 ms QT Int : 390 ms P-R-T Axes : 073 068 063 degrees QTc Int : 455 ms Normal sinus rhythm Normal ECG When compared with ECG of 18-MAY-2022 05:50, No significant change was found Referred By: Will Donaldson Electronically Signed By:WILL DONALDSON MD
[2022-05-18 04:00] VITALS: BP 98/60; PULSE 70; RESP 15; TEMP 36.2; O2SAT 97
[2022-05-18 04:25] VITALS: BMI 26.2
[2022-05-18] MEDS: Enoxaparin Sodium 80 MG/0.8 ML SYRINGE 70 MG SUBCUT (05:50)
[2022-05-18 07:00] LABS: MANUAL DIFF FLAG NO
[2022-05-18 07:03] LABS: Basophils Percent Auto 0.4 % (0-2); Eosinophils Absolute Auto 0.1 X10*3/uL (0.0-0.4); Eosinophils Percent Auto 2.4 % (0-4); Hematocrit 37.9 % (37.0-47.0); Hemoglobin 12.3 g/dl (12.0-16.0); Imm Gran Abs Auto 0.01 X10*3/uL (0.00-0.03); Imm Gran Pct Auto 0.2 % (0.0-0.4); Lymphocytes Absolute Auto 1.9 X10*3/uL (1.2-4.9); Lymphocytes Percent Auto 40.9 % (20-40); Mean Corpuscular HGB Conc 32.5 g/dl (31.0-35.0); Mean Corpuscular Hemoglobin 24.5 pg (27.0-33.0); Mean Corpuscular Volume 75.5 fL (80.0-98.0); Mean Platelet Volume 9.4 fL (9.4-12.3); Monocytes Absolute Auto 0.4 X10*3/uL (0.1-1.2); Neutrophils Absolute Auto 2.2 x10*3/uL (2.0-8.3); Neutrophils Percent Auto 48.1 % (45-73); Platelet Count 213 X10*3/uL (160-400); Red Blood Count 5.02 X10*6/uL (4.20-5.50); Red Cell Distribution Width 13.8 % (11.0-16.0); White Blood Count 4.6 X10*3/uL (4.8-10.8)
[2022-05-18 07:25] LABS: Anion Gap 14 (12-20); Blood Urea Nitrogen 12 mg/dL (9-16); Carbon Dioxide 24 mmol/L (22-29); Chloride 106 mmol/L (96-108); Creatinine Clr Calc Pharmacy 79.8; Estimated Glomerular Filt Rate > 60; Glucose Random 92 mg/dL (60-115); Potassium 4.4 mmol/L (3.3-5.1); Sodium 140 mmol/L (135-145)
[2022-05-18 07:30] VITALS: BP 97/59; PULSE 79; RESP 20; TEMP 36.8; O2SAT 96
--- NOTE | 2022-05-18 08:00 | ECG_ITS ---
Test Reason : chest pain Blood Pressure : / mmHG Vent. Rate : 077 BPM Atrial Rate : 077 BPM P-R Int : 138 ms QRS Dur : 080 ms QT Int : 386 ms P-R-T Axes : 075 072 064 degrees QTc Int : 436 ms Normal sinus rhythm Normal ECG When compared with ECG of 18-MAY-2022 05:51, No significant change was found Referred By: Rosa Portillo Electronically Signed By:MAIDA MEDINA MD
[2022-05-18] MEDS: Multivitamin TABLET 1 TAB PO (09:44)
[2022-05-18] MEDS: Metoprolol Tartrate 25 MG TABLET PO (09:44)
[2022-05-18] MEDS: Magnesium Oxide 400 MG TABLET PO (09:44)
[2022-05-18] MEDS: 0.9 % Sodium Chloride Flush 3 ML SYRINGE IVFLUSH (09:46)
[2022-05-18] MEDS: Cholecalciferol (Vitamin D3) 25 MCG TABLET PO (09:47)
[2022-05-18 10:48] VITALS: BP 99/58; PULSE 72; RESP 20; TEMP 37.1; O2SAT 95
--- NOTE | 2022-05-18 11:17 | P.CONCA_ITS ---
History of Present Illness History of Present Illness Date of Service: 05/18/22 Requesting physician: Zulma Thomas Consult reason: other (New onset atrial flutter) Chief complaint: new onset a flutter Narrative: Thank you for consulting us on Kaitlynn in cardiology consultation today for symptoms of new onset palpitations and lightheadedness. She is a pleasant 57-year-old woman with no significant past medical history except for history of breast cancer and glioma in her brain, treated at [facility]. Patient is usual state of health. She has been having intermittent symptoms of fluttering/palpitation or chest which she chalked up initially to anxiety. She has been doing well except for she says she gained some weight 3 yesterday she decided to go for HIT workout Patient did the training routine for the 1st few minutes and then notice rapid palpitation felt like she would pass start if she continued so she stopped. She decided to go home and was sitting at a computer and notice that she was still having pounding in her chest. She also felt like she might be lightheaded. She then checked her smart watch and which showed a heart rate of 150 beats per minute and decided to come to the emergency room. In the emergency room the initial EKG was consistent with atrial flutter with 2 is to 1 conduction with typical flutter waves. She was then given adenosine initiation and subsequently Cardizem with slowing down of her heart rate and showing atrial flutter, with typical flutter pattern with variable conduction slower heart rate. Overnight she was admitted for possible synchronized cardioversion today however overnight converted back to sinus rhythm on her own. She has remained in sinus rhythm and feels very well. She does have family history in her mother having atrial fibrillation being treated in [place]. Her younger brother had premature atherosclerotic event with myocardial infarction at age of 53. Review of Systems Constitutional: Constitutional: Reports no additional constitutional complaints Eyes: Eyes: Reports no additional eye complaints Cardiovascular: Cardiovascular: Denies chest pain, Denies leg edema, Reports lightheadedness, Denies Loss of Consciousness, Reports palpitations and Denies dyspnea Respiratory: Respiratory: Reports no additional respiratory complaints and Denies dyspnea Gastrointestinal: Gastrointestinal: Reports no additional gastrointestinal complaints Genitourinary: Genitourinary: Reports no additional female genitourinary complaints Musculoskeletal: Musculoskeletal: Reports no additional musculoskeletal complaints Integumentary/Breasts: Skin/Breast: Reports system reviewed and no additional complaints, except as docu Neurologic: Reports system reviewed and no additional complaints, except as documented Psychiatric: Psychiatric: Reports no additional psychiatric complaints Endocrine: Endocrine: Reports no additional endocrine complaints and Reports palpitations Hematologic/Lymphatic: Hematologic/Lymphatic: Reports no additional hematologic/lymphatic complaints [facility] Past Medical History Medical History Breast cancer Glioma of brain Family History Family History Brother Myocardial infarction Maternal Grandmother Myocardial infarction Mother Atrial fibrillation Social History Social History Household Members: Spouse and Children Housing: House Do you presently have visiting nurse or other home services: No Alcohol intake: unknown Patient Tobacco Use Status: Former Tobacco user Smoked in Last 30 Days: No Use of substances other than those prescribed or required for medical reasons: No Have you been hit, kicked, punched, or otherwise hurt by someone within the past year? If so, by whom?: No Do you feel safe in your current relationship?: Yes Is there a partner from a previous relationship who is making you feel unsafe now?: No Are you made to feel afraid or neglected: No Advance Directives: No Advance Directives Information Provided: No Do you have thoughts of harming others: None Do you have a plan to hurt others: No Plan Recently lost weight without trying: No Nutrition Risks: No Nutritional Risk Patient : No : No Poor oral hygiene: No Meds Allergies Allergy/AdvReac Type Severity Reaction Status Date / Time No Known Allergies Allergy Verified 05/17/22 13:08 Active Medications: Current Medications Acetaminophen (Acetaminophen 325 Mg Tablet) 650 mg PO Q6H PRN PRN Reason: Pain, Mild (Pain Scale 1-3) Enoxaparin Sodium (Enoxaparin Sodium 80 Mg/0.8 Ml Syringe) 70 mg SUBCUT Q12H [facility] Last Admin: 05/18/22 05:50 Dose: 70 mg Lorazepam (Lorazepam 0.5 Mg Tablet) 0.5 mg PO BID PRN PRN Reason: anxiety/sleep Last Admin: 05/17/22 23:28 Dose: 0.5 mg Magnesium Oxide (Magnesium Oxide 400 Mg Tablet) 400 mg PO BID [facility] Last Admin: 05/18/22 09:44 Dose: 400 mg Metoprolol Tartrate (Metoprolol Tartrate 25 Mg Tablet) 25 mg PO BID [facility]; Protocol Last Admin: 05/18/22 09:44 Dose: 25 mg Multivitamins/Vitamin C (Multivitamin Tablet) 1 tab PO DAILY [facility] Last Admin: 05/18/22 09:44 Dose: 1 tab Ondansetron HCl (Ondansetron Hcl 4 Mg/2 Ml Vial) 4 mg IVPUSH Q8H PRN PRN Reason: Nausea and Vomiting Pharmacy Consult (Consult Rx Perform Med Rec) 1 each MISCELLANE ONCE PRN PRN Reason: Consult order Sodium Chloride (0.9 % Sodium Chloride Flush 3 Ml Syringe) 3 ml IVFLUSH QSHIFT [facility] Last Admin: 05/18/22 09:46 Dose: 3 ml Sumatriptan Succinate (Sumatriptan Succinate 50 Mg Tablet) 50 mg PO DAILY MRX1 PRN PRN Reason: migraine Vitamin D (Cholecalciferol (Vitamin D3) 25 Mcg Tablet) 25 mcg PO DAILY [facility] Last Admin: 05/18/22 09:47 Dose: 25 mcg Home Medications Medication Instructions Recorded Confirmed Last Taken Type Lactobacillus acidophilus 10 10,000 mmu cells PO DAILY 05/17/22 05/17/22 Unknown History billion cell capsule (Probiotic) cholecalciferol (vitamin D3) 25 25 mcg PO DAILY 05/17/22 05/17/22 Unknown History mcg (1,000 unit) tablet lorazepam 0.5 mg tablet 1 tab PO BID PRN anxiety/sleep 05/17/22 05/17/22 Unknown History magnesium oxide 400 mg PO BID 05/17/22 05/17/22 Unknown History multivitamin 1 tab PO DAILY 05/17/22 05/17/22 Unknown History sumatriptan succinate 50 mg tablet 50 mg PO DAILY MRX1 05/17/22 05/17/22 Unknown History Physical Exam Vital Signs: Vital Signs: Last Vital Signs Temp 98.7 F 05/18/22 10:48 Pulse 72 05/18/22 10:48 Resp 20 05/18/22 10:48 BP 99/58 L 05/18/22 10:48 Pulse Ox 95 05/18/22 10:48 O2 Del Method 05/18/22 10:48 BMI result Body Mass Index 26.2 Const: General: cooperative, comfortable, no acute distress, well developed, alert and awake Nutritional Appearance: average body habitus and well nourished Orientation/consciousness: patient oriented x3 Limitations: no limitations HEENT: Head: Yes normocephalic and Yes atraumatic Neck: Neck: Yes trachea midline, Yes supple and Yes no JVD Resp: Effort & Inspection: normal respiratory effort Auscultation: clear to auscultation bilaterally Cardio: Jugular venous distension: no JVD Palpation: normal PMI Rate: regular rate Rhythm: regular rhythm Heart sounds: S1 normal heart sound present, S2 normal heart sound present, no click, no gallops and no murmurs GI: Auscultation: normal bowel sounds Skin: General skin exam: no rashes or lesions noted Neuro: General: patient oriented x3 and no focal motor deficits Extrem: General: Yes no clubbing, cyanosis or edema Objective Labs and Meds 05/18/22 06:55 05/18/22 06:55 Lab results: Laboratory Results - last 24 hr 05/17/22 05/17/22 05/17/22 13:36 13:36 13:36 WBC 6.4 RBC 5.75 H Hgb 13.8 Hct 43.4 MCV 75.5 L MCH 24.0 L MCHC 31.8 RDW 13.8 Plt Count 260 MPV 9.5 Immature Gran % (Auto) 0.2 Neut % (Auto) 68.6 Lymph % (Auto) 25.3 [place] % (Auto) 5.3 Eos % (Auto) 0.3 Baso % (Auto) 0.3 Lymph # (Auto) 1.6 [place] # (Auto) 0.3 Eos # (Auto) 0.0 Baso # (Auto) 0.0 Abs Immat Gran (auto) 0.01 Absolute Neuts (auto) 4.4 Absolute Nucleated RBC 0.000 Nucleated RBC % (auto) 0.0 PT 11.0 INR 1.0 D-Dimer High Sensitivty < 150 Sodium 141 Potassium 4.5 Chloride 101 Carbon Dioxide 29 Anion Gap 16 BUN 14 Creatinine 0.84 Estim Creat Clear Calc 71.4 Estimated GFR > 60 Random Glucose 107 Calcium 10.0 D Magnesium 2.1 Total Bilirubin 0.9 AST 26 ALT 22 Alkaline Phosphatase 117 Total Creatine Kinase 109 Troponin I High Sens B-Natriuretic Peptide Total Protein 7.7 Albumin 4.7 COVID-19 ([facility]) COVID-19 Clin Com 05/17/22 05/17/22 05/17/22 13:36 13:36 13:36 WBC RBC Hgb Hct MCV MCH MCHC RDW Plt Count MPV Immature Gran % (Auto) Neut % (Auto) Lymph % (Auto) [place] % (Auto) Eos % (Auto) Baso % (Auto) Lymph # (Auto) [place] # (Auto) Eos # (Auto) Baso # (Auto) Abs Immat Gran (auto) Absolute Neuts (auto) Absolute Nucleated RBC Nucleated RBC % (auto) PT INR D-Dimer High Sensitivty Sodium Potassium Chloride Carbon Dioxide Anion Gap BUN Creatinine Estim Creat Clear Calc Estimated GFR Random Glucose Calcium Magnesium Total Bilirubin AST ALT Alkaline Phosphatase Total Creatine Kinase Troponin I High Sens 3.6 B-Natriuretic Peptide 224 H Total Protein Albumin COVID-19 ([facility]) Negative COVID-19 Clin Com See Note 05/18/22 05/18/22 06:55 06:55 WBC 4.6 L RBC 5.02 Hgb 12.3 Hct 37.9 MCV 75.5 L MCH 24.5 L MCHC 32.5 RDW 13.8 Plt Count 213 MPV 9.4 Immature Gran % (Auto) 0.2 Neut % (Auto) 48.1 Lymph % (Auto) 40.9 H [place] % (Auto) 8.0 Eos % (Auto) 2.4 Baso % (Auto) 0.4 Lymph # (Auto) 1.9 [place] # (Auto) 0.4 Eos # (Auto) 0.1 Baso # (Auto) 0.0 Abs Immat Gran (auto) 0.01 Absolute Neuts (auto) 2.2 Absolute Nucleated RBC 0.000 Nucleated RBC % (auto) 0.0 PT INR D-Dimer High Sensitivty Sodium 140 Potassium 4.4 Chloride 106 Carbon Dioxide 24 Anion Gap 14 BUN 12 Creatinine 0.76 Estim Creat Clear Calc 79.8 Estimated GFR > 60 Random Glucose 92 Calcium 9.0 D Magnesium Total Bilirubin AST ALT Alkaline Phosphatase Total Creatine Kinase Troponin I High Sens B-Natriuretic Peptide Total Protein Albumin COVID-19 ([facility]) COVID-19 Clin Com EKG on presentation shows typical atrial flutter with 2 is to 1 conduction EKG 2. Shows atrial flutter with variable conduction, typical atrial flutter Imaging Radiologist's impression: Impressions Chest X-Ray 05/17/22 13:53 IMPRESSION: No acute intrathoracic disease. No pneumothorax, airspace consolidation, or effusion. Assessment and Plan (1) New onset atrial flutter: Status: Acute New onset paroxysmal atrial flutter converted with rate control last night. Patient symptomatic we much improved. She has had prior episodes of brief palpitation which she had thought was related to anxiety. Her this appears to be more related to atrial flutter. She has a very typical atrial flutter with macro entry circuit in the right atrium. This is easily amenable to ablated therapy. This was discussed with her. Will refer her to EPS for the same. She prefers to go to [facility]. Will arrange this for her. Given her risk factors, would do some structural workup. Will have an echocardiogram and stress test which can be done as outpatient. Start on metoprolol XL 25 mg daily. Avoidance stimulants such as caffeine and alcohol was discussed. Also avoid excessive strenuous activity at this point in time. Gradual exercises okay. This was discussed with her. Patient can be discharged home today after TSH check Time Spent With Patient Time: Total time managing care of this patient today ____ minutes. Procedures Date of Service Date of Service: 05/18/22
--- NOTE | 2022-05-18 11:38 | P.DS_ITS ---
DS: Providers Provider Date of Service: 05/18/22 Date of admission: 05/17/22 16:44 Primary care physician: Terry Peoples MD Consults: 05/18/22 09:54 Consult to Cardiology Routine Consulting Provider: [facility] Reason for consultation: atrial flutter Has provider been notified: No DS: Diagnosis Discharge Diagnosis (1) New onset atrial flutter: Status: Acute DS: Summary Hospital Course Hospital Course: History of presenting illness: Date of Service: 05/17/22 Attending physician on admission: Zulma Thomas Chief Complaint: sob, chest pressure 57-year-old female with history of right breast cancer s/p mastectomy, history of glioma, history of lung nodules, who is a former smoker presented to the ED earlier today for evaluation of dyspnea, palpitations, and chest pressure that started this morning.? She states she was doing a cardiac workout and developed significant shortness of breath.? She stops to rest without resolution of symptoms and developed palpitations, lightheadedness with near syncope, and chest pressure without radiation.? She states she had 2 similar episodes remotely that resolved spontaneously.? She does have significant family cardiac history with brother who had a massive heart attack at 56, mother has atrial fibrillation, and maternal grandmother with [place].? On arrival, patient tachycardic to 150, mildly hypertensive at 140/98.? No hypoxia.? EKG showed atrial further, rate 151.? Chest x-ray negative.? Hematology studies unremarkable.? Coags normal with D-dimer less than 150.? Renal function electrolytes normal.? Troponin negative.? BNP 224.? Negative for COVID-19.? Patient initially treated with 6 mg adenosine, repeated with 12 mg adenosine, 5 mg Lopressor, and 10 mg diltiazem with improvement in heart rate is 0 atrial flutter persists.? She was also given 20 mg Xarelto.? Case was discussed with Cardiology with plan for admission to medicine with cardioversion tomorrow. Hospital course 57-year-old female with history of right breast cancer s/p mastectomy, history of glioma, history of lung nodules, who is a former smoker admitted for new onset atrial flutter # patient admitted to telemetry with new onset atrial flutter, patient treated with metoprolol 25 mg b.i.d. ,converted overnight to normal sinus rhythm with stable ventricular rate, patient seen by c unix developer Dr. Frye he recommend EP study for which he will arrange at [facility] patient will undergo echocardiogram and stress testing as outpatient , will discharge home on Toprol-XL 25 mg daily she has been recommended to avoid caffeine and alcohol and strenuous exercise , TSH within normal range. #Anxiety -continue lorazepam #hx right breast cancer -s/p mastectomy, follows with [facility]. Time Spent with Patient Time attestation: Total time managing care of this patient today ____ minutes. Discharge coordination time: Greater than 30 minutes Quality: Safe Use of Opioids Does Pt have an Active Cancer Diagnosis on the Problem List?: No Quality: Stroke Does the patient have a stroke diagnosis?: No Physical Exam Vital Signs: Vital Signs: Last Vital Signs Temp 98.7 F 05/18/22 10:48 Pulse 72 05/18/22 10:48 Resp 20 05/18/22 10:48 BP 99/58 L 05/18/22 10:48 Pulse Ox 95 05/18/22 10:48 O2 Del Method 05/18/22 10:48 BMI result Body Mass Index 26.2 Const: Other: General awake alert x3, in no acute distress. Neck is supple no JVD. CVS regular rate rhythm, Respiratory lungs clear to auscultation, no respiratory distress, no wheeze, no rhonchi. Gastrointestinal abdomen soft, nontender, bowel sounds audible, no guarding , no rigidity. Extremities no edema. Neuro nonfocal Skin no rash Psych appropriate affect. DS: Data Data Completed and Pending Labs on day of discharge: Laboratory Results - last 24 hr 05/17/22 05/17/22 05/17/22 13:36 13:36 13:36 WBC 6.4 RBC 5.75 H Hgb 13.8 Hct 43.4 MCV 75.5 L MCH 24.0 L MCHC 31.8 RDW 13.8 Plt Count 260 MPV 9.5 Immature Gran % (Auto) 0.2 Neut % (Auto) 68.6 Lymph % (Auto) 25.3 [place] % (Auto) 5.3 Eos % (Auto) 0.3 Baso % (Auto) 0.3 Lymph # (Auto) 1.6 [place] # (Auto) 0.3 Eos # (Auto) 0.0 Baso # (Auto) 0.0 Abs Immat Gran (auto) 0.01 Absolute Neuts (auto) 4.4 Absolute Nucleated RBC 0.000 Nucleated RBC % (auto) 0.0 PT 11.0 INR 1.0 D-Dimer High Sensitivty < 150 Sodium 141 Potassium 4.5 Chloride 101 Carbon Dioxide 29 Anion Gap 16 BUN 14 Creatinine 0.84 Estim Creat Clear Calc 71.4 Estimated GFR > 60 Random Glucose 107 Calcium 10.0 D Magnesium 2.1 Total Bilirubin 0.9 AST 26 ALT 22 Alkaline Phosphatase 117 Total Creatine Kinase 109 Troponin I High Sens B-Natriuretic Peptide Total Protein 7.7 Albumin 4.7 COVID-19 ([facility]) COVID-19 Clin Com 05/17/22 05/17/22 05/17/22 13:36 13:36 13:36 WBC RBC Hgb Hct MCV MCH MCHC RDW Plt Count MPV Immature Gran % (Auto) Neut % (Auto) Lymph % (Auto) [place] % (Auto) Eos % (Auto) Baso % (Auto) Lymph # (Auto) [place] # (Auto) Eos # (Auto) Baso # (Auto) Abs Immat Gran (auto) Absolute Neuts (auto) Absolute Nucleated RBC Nucleated RBC % (auto) PT INR D-Dimer High Sensitivty Sodium Potassium Chloride Carbon Dioxide Anion Gap BUN Creatinine Estim Creat Clear Calc Estimated GFR Random Glucose Calcium Magnesium Total Bilirubin AST ALT Alkaline Phosphatase Total Creatine Kinase Troponin I High Sens 3.6 B-Natriuretic Peptide 224 H Total Protein Albumin COVID-19 ([facility]) Negative COVID-19 Clin Com See Note 05/18/22 05/18/22 06:55 06:55 WBC 4.6 L RBC 5.02 Hgb 12.3 Hct 37.9 MCV 75.5 L MCH 24.5 L MCHC 32.5 RDW 13.8 Plt Count 213 MPV 9.4 Immature Gran % (Auto) 0.2 Neut % (Auto) 48.1 Lymph % (Auto) 40.9 H [place] % (Auto) 8.0 Eos % (Auto) 2.4 Baso % (Auto) 0.4 Lymph # (Auto) 1.9 [place] # (Auto) 0.4 Eos # (Auto) 0.1 Baso # (Auto) 0.0 Abs Immat Gran (auto) 0.01 Absolute Neuts (auto) 2.2 Absolute Nucleated RBC 0.000 Nucleated RBC % (auto) 0.0 PT INR D-Dimer High Sensitivty Sodium 140 Potassium 4.4 Chloride 106 Carbon Dioxide 24 Anion Gap 14 BUN 12 Creatinine 0.76 Estim Creat Clear Calc 79.8 Estimated GFR > 60 Random Glucose 92 Calcium 9.0 D Magnesium Total Bilirubin AST ALT Alkaline Phosphatase Total Creatine Kinase Troponin I High Sens B-Natriuretic Peptide Total Protein Albumin COVID-19 ([facility]) COVID-19 Clin Com Discharge Plan Discharge Anticipated Discharge Date/Time: 05/18/22 11:07 Patient Disposition: Home, Self-Care Discharge Diagnosis: Atrial flutter with RVR Referrals: Terry Peoples MD [Primary Care Provider] - 1 Week Discharge Medications: New metoprolol succinate 25 mg tablet extended release 24 hr 25 mg PO DAILY Qty: 30 0RF Continued multivitamin Tablet 1 tab PO DAILY sumatriptan succinate 50 mg tablet 50 mg PO DAILY MRX1 lorazepam 0.5 mg tablet 1 tab PO BID PRN (Reason: anxiety/sleep) cholecalciferol (vitamin D3) 25 mcg (1,000 unit) Tablet 25 mcg PO DAILY Probiotic 10 billion cell Capsule 10,000 mmu cells PO DAILY magnesium oxide 400 mg magnesium Tablet 400 mg PO BID Discharge Orders: Discharge Order (Routine); Ordered 05/18/22 Ordered By: Zulma Thomas Diet: Advance to usual diet Activity on Discharge: As tolerated Stand Alone Forms: Patient Portal Discharge page Care Plan Goals: Atrial flutter converted to normal sinus rhythm, take metoprolol XL 25 mg daily, avoid caffeine and alcohol, avoid excessive strenuous activity. Health Concerns: Take all other home medications Plan of Treatment: Outpatient follow-up with Cardiology and primary care physician Assessment: As above
--- NOTE | 2022-05-18 12:07 | MHC.CM.PN ---
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 PT EDUCATED ON HCP'S HOWEVER DECLINES AT THIS TIME, PT VERIFIES PCP IS ANNABELLA PATHAK AND JUSTYNA VACCINATED X3 OR 4. D/C HOME TODAY SELF-CARE W/FAMILY FOR TRANSPORT.
[2022-05-18 12:46] LABS: Thyroid Stimulating Hormone 1.01 uIU/mL (0.32-4.0)
== END 2022-05-18 13:26 | disposition home or self-care (01) | DRG 201 ==
LOC: HO.ED 16:27 → HO.EDOVER 16:59 → HO.IMC 17:23
PROVIDERS: Physician Assistant; Admitting Provider Physician Assistant; Emergency Provider Emergency Medicine; PCP Internal Medicine; Visit Provider Hospitalist
DX: I48.92 Unspecified atrial flutter (principal); Z20.822 Contact with and (suspected) exposure to COVID-19; Z90.11 Acquired absence of right breast and nipple; Z87.891 Personal history of nicotine dependence; Z85.3 Personal history of malignant neoplasm of breast; Z79.899 Other long term (current) drug therapy
CPT/HCPCS: 36415; 71045; 80048; 80053; 82550; 83735; 83880; 84443; 84484; 85025; 85379; 85610; 87635; 93005; 99285; J0153; J1650

== ENCOUNTER 2022-06-24 17:17 | Emergency (ER) | payer BC, MEDICARE, SELFPAY ==
--- NOTE | ~2022-06-24 | XR_ITS ---
EXAMINATION: XR CHEST CLINICAL INFORMATION: Chest pain. COMPARISON: None available. TECHNIQUE: Frontal view of the chest was obtained. FINDINGS: The lungs are hyperinflated but clear. The heart size and pulmonary vascularity is normal. There is mild dextro scoliosis with mild spondylosis of dorsal spine. No aggressive lytic or sclerotic process seen. XR/XR chest 1V IMPRESSION: Hyperinflated lungs without acute process.
--- NOTE | 2022-06-24 17:21 | ECG_ITS ---
Test Reason : palpitaitons Blood Pressure : / mmHG Vent. Rate : 067 BPM Atrial Rate : 067 BPM P-R Int : 154 ms QRS Dur : 080 ms QT Int : 390 ms P-R-T Axes : 058 046 030 degrees QTc Int : 412 ms Sinus rhythm with Premature atrial complexes Otherwise normal ECG When compared with ECG of 18-MAY-2022 11:37, Premature atrial complexes are now Present Referred By: Andrés Robbins Electronically Signed By:Deyvi Gray
[2022-06-24 17:37] VITALS: BP 117/72; PULSE 65; RESP 18; TEMP 36.7; O2SAT 97; BMI 25.0
--- NOTE | 2022-06-24 17:42 | ED_ITS ---
HPI - General Adult General Chief complaint: Arrhythmia/Palpitations Stated complaint: Heart palpitations/ history of heart issues Related Data Home Medications ?Medication ?Instructions ?Recorded ?Confirmed Lactobacillus acidophilus 10 10,000 mmu cells PO DAILY 05/17/22 05/17/22 billion cell capsule (Probiotic) cholecalciferol (vitamin D3) 25 25 mcg PO DAILY 05/17/22 05/17/22 mcg (1,000 unit) tablet lorazepam 0.5 mg tablet 1 tab PO BID PRN anxiety/sleep 05/17/22 05/17/22 magnesium oxide 400 mg PO BID 05/17/22 05/17/22 multivitamin 1 tab PO DAILY 05/17/22 05/17/22 sumatriptan succinate 50 mg tablet 50 mg PO DAILY MRX1 05/17/22 05/17/22 Previous Rx's ?Medication ?Instructions ?Recorded metoprolol succinate 25 mg 25 mg PO DAILY #30 tabs 05/18/22 tablet,extended release 24 hr Allergies Allergy/AdvReac Type Severity Reaction Status Date / Time No Known Allergies Allergy Verified 08/23/22 13:12 [facility] Past Medical History Medical History Breast cancer Glioma of brain Palpitation Family History Family History Brother Myocardial infarction Maternal Grandmother Myocardial infarction Mother Atrial fibrillation Social History Social History Household Members: Spouse and Children Housing: House Do you presently have visiting nurse or other home services: No Alcohol intake: current Alcohol intake frequency: a few times a month Alcohol type: wine Patient Tobacco Use Status: Former Tobacco user service: No Current occupational status: unemployed Physical Exam ED Vital Signs: BMI result Body Mass Index 25.0 Course Course Course Narrative: This is an RME: Additional HPI, ROS, PE not included below will be deferred to primary provider. 57-year-old female newly diagnosed with atrial fibrillation atrial flutter controlled by metoprolol all not anticoagulated presenting to the emergency department with complaints of palpitations, chest discomfort started this morning. Tells me she is followed by cardiology out of [facility]. Denies shortness of breath. Physical exam benign in a normal sinus rhythm Plan EKG, basic labs. Medical Decision Making Lab Data 06/24/22 17:44 06/24/22 17:44 Labs: Lab Results 06/24/22 Range/Units 17:44 WBC 4.9 (4.8-10.8) X10*3/uL RBC 5.43 (4.20-5.50) X10*6/uL Hgb 13.4 (12.0-16.0) g/dl Hct 41.3 (37.0-47.0) % MCV 76.1 L (80.0-98.0) fL MCH 24.7 L (27.0-33.0) pg MCHC 32.4 (31.0-35.0) g/dl RDW 13.8 (11.0-16.0) % Plt Count 222 (160-400) X10*3/uL MPV 8.8 L (9.4-12.3) fL Immature Gran % (Auto) 0.2 (0.0-0.4) % Neut % (Auto) 47.5 (45-73) % Lymph % (Auto) 42.4 H (20-40) % [place] % (Auto) 7.9 (2-11) % Eos % (Auto) 1.4 (0-4) % Baso % (Auto) 0.6 (0-2) % Lymph # (Auto) 2.1 (1.2-4.9) X10*3/uL [place] # (Auto) 0.4 (0.1-1.2) X10*3/uL Eos # (Auto) 0.1 (0.0-0.4) X10*3/uL Baso # (Auto) 0.0 (0.0-0.2) X10*3/uL Abs Immat Gran (auto) 0.01 (0.00-0.03) X10*3/uL Absolute Neuts (auto) 2.3 (2.0-8.3) x10*3/uL Absolute Nucleated RBC 0.000 (0.0-0.012) X10*3/uL Nucleated RBC % (auto) 0.0 (0.0-0.2) /100WBC D-Dimer High Sensitivty < 150 NG/ML Sodium 141 (135-145) mmol/L Potassium 4.7 (3.3-5.1) mmol/L Chloride 103 (96-108) mmol/L Carbon Dioxide 29 (22-29) mmol/L Anion Gap 14 (12-20) BUN 13 (9-16) mg/dL Creatinine 0.72 (0.5-1.4) mg/dL Estim Creat Clear Calc 76.6 Estimated GFR > 60 Random Glucose 84 (60-115) mg/dL Calcium 9.7 D (8.4-10.2) mg/dL Magnesium 2.2 (1.6-2.6) mg/dL Total Bilirubin 0.7 (0.0-1.0) mg/dL AST 23 (5-31) U/L ALT 27 (0-31) U/L Alkaline Phosphatase 104 (39-117) U/L Troponin I High Sens < 2.7 (<3.5-17.0) ng/L Total Protein 7.3 (6.5-8.0) g/dL Albumin 4.5 (3.5-5.0) g/dL COVID-19 ([facility]) Negative (Negative) COVID-19 Clin Com See Note Discharge Plan Discharge Clinical Impression: Eloped from emergency department Patient Disposition: Elopement Prescriptions: No Action multivitamin Tablet 1 tab PO DAILY sumatriptan succinate 50 mg tablet 50 mg PO DAILY MRX1 lorazepam 0.5 mg tablet 1 tab PO BID PRN (Reason: anxiety/sleep) cholecalciferol (vitamin D3) 25 mcg (1,000 unit) Tablet 25 mcg PO DAILY Probiotic 10 billion cell Capsule 10,000 mmu cells PO DAILY magnesium oxide 400 mg magnesium Tablet 400 mg PO BID metoprolol succinate 25 mg tablet extended release 24 hr 25 mg PO DAILY Qty: 30 0RF Interventions: ED Discharge Assessment Last Done: 06/24/22 19:54 Discharge Date/Time: 06/24/22 19:54 Print Language: Mosotho
[2022-06-24 17:50] LABS: MANUAL DIFF FLAG NO
[2022-06-24 17:56] LABS: Basophils Percent Auto 0.6 % (0-2); Eosinophils Absolute Auto 0.1 X10*3/uL (0.0-0.4); Eosinophils Percent Auto 1.4 % (0-4); Hematocrit 41.3 % (37.0-47.0); Hemoglobin 13.4 g/dl (12.0-16.0); Imm Gran Abs Auto 0.01 X10*3/uL (0.00-0.03); Imm Gran Pct Auto 0.2 % (0.0-0.4); Lymphocytes Absolute Auto 2.1 X10*3/uL (1.2-4.9); Lymphocytes Percent Auto 42.4 % (20-40); Mean Corpuscular HGB Conc 32.4 g/dl (31.0-35.0); Mean Corpuscular Hemoglobin 24.7 pg (27.0-33.0); Mean Corpuscular Volume 76.1 fL (80.0-98.0); Mean Platelet Volume 8.8 fL (9.4-12.3); Monocytes Absolute Auto 0.4 X10*3/uL (0.1-1.2); Monocytes Percent Auto 7.9 % (2-11); Neutrophils Absolute Auto 2.3 x10*3/uL (2.0-8.3); Neutrophils Percent Auto 47.5 % (45-73); Platelet Count 222 X10*3/uL (160-400); Red Blood Count 5.43 X10*6/uL (4.20-5.50); Red Cell Distribution Width 13.8 % (11.0-16.0); White Blood Count 4.9 X10*3/uL (4.8-10.8)
[2022-06-24 18:03] LABS: D Dimer High Sensitivity < 150 NG/ML
[2022-06-24 18:09] LABS: COVID-19 Test Negative (Negative); IDNOW Serial# BCCEAD1C
[2022-06-24 18:14] LABS: Alanine Aminotransferase 27 U/L (0-31); Albumin Level 4.5 g/dL (3.5-5.0); Alkaline Phosphatase 104 U/L (39-117); Anion Gap 14 (12-20); Aspartate Amino Transferase 23 U/L (5-31); Bilirubin Total 0.7 mg/dL (0.0-1.0); Blood Urea Nitrogen 13 mg/dL (9-16); Calcium 9.7 mg/dL (8.4-10.2); Carbon Dioxide 29 mmol/L (22-29); Chloride 103 mmol/L (96-108); Creatinine Clr Calc Pharmacy 76.6; Estimated Glomerular Filt Rate > 60; Glucose Random 84 mg/dL (60-115); Magnesium 2.2 mg/dL (1.6-2.6); Potassium 4.7 mmol/L (3.3-5.1); Sodium 141 mmol/L (135-145); Total Protein 7.3 g/dL (6.5-8.0)
[2022-06-24 18:17] LABS: Troponin-I High Sensitivity < 2.7 ng/L (<3.5-17.0)
== END 2022-06-24 19:54 | disposition left against medical advice (07) ==
PROVIDERS: Physician Assistant; Emergency Provider Emergency Medicine; PCP Internal Medicine
DX: R00.2 Palpitations (principal); Z20.822 Contact with and (suspected) exposure to COVID-19; Z79.899 Other long term (current) drug therapy
CPT/HCPCS: 36415; 71045; 80053; 83735; 84484; 85025; 85379; 87635; 93005; 99283

== ENCOUNTER → 2022-08-02 14:56 | Outpatient (REF) | payer BC, SELFPAY ==
--- NOTE | 2022-08-02 15:03 | CA_ITS ---
Transthoracic Echocardiogram Patient (Last, First, Middle): Kaitlynn Lee, Gender: Female Date of : 1965 Age: 57 Procedure Date: 08/02/2022 Procedure Type: Transthoracic Echocardiogram Location: [place] Height: 165.1 cm Weight: 70.31 kg BSA: 1.78 m2 Heart Rate: 65 bpm BP: 104 / 60 mmHg Change Analyst: LESLIE Referring MD: Terry Peoples MD Symptoms: ATRIAL FLUTTER I48.3 Study Quality: Adequate ECG Rhythm: Sinus Conclusions: - The left ventricular systolic function is normal. The calculated ejection fraction is 66% by biplane method. - The basal inferior and basal inferolateral segments are hypokinetic. - No obvious valvular pathology seen on this study. Findings Left Ventricle Normal left ventricular cavity size. There is normal left ventricular wall thickness. The left ventricular systolic function is normal. The calculated ejection fraction is 66% by biplane method. There is evidence of regional wall motion abnormalities. Diastolic function is normal for age. LV peak GLS -17.9%. Wall Motion Rest Echo Findings The basal inferior and basal inferolateral segments are hypokinetic. Right Ventricle Normal right ventricular cavity size and systolic function. Atria Both atria are normal in size. Aortic Valve There is a normal trileaflet aortic valve. There is no aortic valve stenosis. Trace to mild aortic regurgitation. Mitral Valve The mitral valve appears normal. There is no mitral valve regurgitation. There is no mitral valve stenosis. Pulmonic Valve The pulmonic valve is likely normal. Tricuspid Valve There is trace tricuspid valve regurgitation. There is no evidence of pulmonary hypertension. Great Vessels The asc aorta is normal in size. Venous The inferior vena cava is normal in size and collapses greater than 50% with inspiration. Pericardium/Pleural There is no evidence of pericardial effusion. Prior Study Comparison No prior study available for comparison. Recommendations, Care & Conclusions No obvious valvular pathology seen on this study. Measurements 2D Linear Measurements IVSd: 0.79 0.6-0.9/0.6-1.0 cm LVIDd: 4.88 3.9-5.3/4.2-5.9 cm LVIDd Index: 2.74 2.4-3.2/2.2-3.1 cm/m2 LVIDs: 3.11 2.0-3.6 cm LVPWd: 0.94 0.7-1.1 cm LV Mass: 180.04 67-162/88-224 g LV Mass Index: 101.15 43-95/49-115 g/m2 LVOT Diam: 2.00 3.0+(-)1.3 cm 2D Systolic Function EF 4C: 65.70 >55% EF 2C: 65.90 >55% EF BiP: 65.50 >55% Mitral Valve MV Pk E: 0.53 MV PK A: 0.51 MV Decel Time: 268.00 E/A: 1.00 E'Lateral: 11.50 E'Medial: 8.70 E/E' Med: 6.10 E/E' Lat: 4.60 PHT: 78.00 MVA PHT: 2.82 Decel Barton: 1.99 Aortic Valve AoV Pk Arash: 1.37 AoV Mn Arash: 0.97 AoV VTI: 0.32 AoV Pk Grad: 8.00 Aov Mn Grad: 4.00 MARCOS Cont.VTI: 2.20 AI Pk Arash: 3.86 AI Barton: 1.75 LVOT LVOT Pk Arash: 0.93 LVOT Mn Arash: 0.61 LVOT VTI: 0.23 LVOT Pk Grad: 3.00 LVOT Mn Grad: 2.00 LVOT Diam: 2.00 LVOT Area: 3.14 Diastolic Function MV Pk E: 0.53 MV Pk A: 0.51 E/A: 1.00 E'Medial: 8.70 E/E' Med: 6.10 E' Laterial: 11.50 E/E' Lat: 4.60 Right Ventricle TAPSE (mm): 24.00 TVS' Arash: 11.60 Tricuspid Valve TR Pk Arash: 1.96 TR Pk Grad: 15.00 RA Press: 3.00 RVSP: 18.00 Great Vessels Aorta Sinus of Valsalva: 3.40 2.0-3.[address] [place]: 2.75 1.7-3.4 cm Ao Asc: 3.00 2.1-3.4 cm Updated in Other Vendor System with Status of Final Josef Wall MD electronically signed on 08/03/2022 10:06:37 AM with status of Final
== END ==
LOC: HO.CARD 14:56
PROVIDERS: PCP Internal Medicine; Visit Provider Internal Medicine
DX: I48.3 Typical atrial flutter (principal)
CPT/HCPCS: 93306; 93356

== ENCOUNTER 2022-08-23 12:48 | Emergency (ER) | payer BC, SELFPAY ==
--- NOTE | ~2022-08-23 | XR_ITS ---
EXAMINATION: XR CHEST CLINICAL INFORMATION: Chest pain COMPARISON: May 2022. TECHNIQUE: 2 views of the chest FINDINGS: No airspace consolidation or vascular congestion observed. Pleural surfaces are clear. A 6 mm nodular density projects at the right upper lobe, superimposing the posterior right fifth rib. No evidence for hilar adenopathy. Thoracic spondylitic changes seen at multiple levels. XR/XR chest 2V IMPRESSION: No appreciable airspace infiltrates or effusions. Nodular density projecting at the right upper lobe. CT evaluation of the chest as an outpatient could be helpful toward further clarification.
--- NOTE | 2022-08-23 12:51 | ECG_ITS ---
Test Reason : CP Blood Pressure : / mmHG Vent. Rate : 066 BPM Atrial Rate : 066 BPM P-R Int : 142 ms QRS Dur : 080 ms QT Int : 368 ms P-R-T Axes : 063 054 038 degrees QTc Int : 385 ms Normal sinus rhythm Nonspecific ST and T wave abnormality Abnormal ECG When compared with ECG of 24-JUN-2022 17:33, Premature atrial complexes are no longer Present Referred By: Patricia Tom Electronically Signed By:JESSICA MORENO
[2022-08-23 13:10] LABS: MANUAL DIFF FLAG NO
--- NOTE | 2022-08-23 13:10 | ED.CHESTPAIN ---
HPI - Chest Pain General Chief Complaint: Chest Pain Stated Complaint: Chest pain Time Seen by Provider: 08/23/22 13:28 Source: patient Mode of arrival: ambulatory Limitations: no limitations History of Present Illness HPI narrative: 49-year-old female with history of paroxysmal atrial fibrillation not on anticoagulation, on beta-blockers presents with intermittent chest pain. The chest pain is in left anterior shoulder area. The symptoms can be worsened by exertion and stress. The pain does not radiate. The pain is described as mild to moderate and sharp. It is not associated with any shortness of breath, lightheadedness, nausea or vomiting. She does occasionally get numbness and tingling left upper extremity which occurred more significantly today. However, she does have a history of postsurgical changes which resulted intermittent paresthesias left upper extremity. In April, patient had a full workup including a stress echocardiogram which was reportedly normal. Patient is trying to see a auto mechanics instructor locally. Her auto mechanics instructor was in [place]. Patient was sent to the emergency department by her provider today because her pain although her typical for her was associated with more significant numbness and tingling left upper extremity. Patient did have a recent MRI a [facility] of the brain which showed no new changes according to her. Related Data Home Medications Medication Instructions Recorded Confirmed Lactobacillus acidophilus 10 10,000 mmu cells PO DAILY 05/17/22 05/17/22 billion cell capsule (Probiotic) cholecalciferol (vitamin D3) 25 25 mcg PO DAILY 05/17/22 05/17/22 mcg (1,000 unit) tablet lorazepam 0.5 mg tablet 1 tab PO BID PRN anxiety/sleep 05/17/22 05/17/22 magnesium oxide 400 mg PO BID 05/17/22 05/17/22 multivitamin 1 tab PO DAILY 05/17/22 05/17/22 sumatriptan succinate 50 mg tablet 50 mg PO DAILY MRX1 05/17/22 05/17/22 Previous Rx's Medication Instructions Recorded metoprolol succinate 25 mg 25 mg PO DAILY #30 tabs 05/18/22 tablet,extended release 24 hr Allergies Allergy/AdvReac Type Severity Reaction Status Date / Time No Known Allergies Allergy Verified 08/23/22 13:12 Review of Systems Review of Systems: CONSTITUTIONAL: Denies weight loss, fever and chills. HEENT: Denies changes in vision and hearing. RESPIRATORY: Denies SOB and cough. CV: Denies palpitations + CP. GI: Denies abdominal pain, nausea, vomiting and diarrhea. : Denies dysuria and urinary frequency. MSK: Denies myalgia and joint pain. SKIN: Denies rash and pruritus. NEUROLOGICAL: Denies headache and syncope. PSYCHIATRIC: Denies recent changes in mood. Denies anxiety and depression. All other ROS are negative unless in HPI PMFSH Past Medical History Medical History Breast cancer Glioma of brain Palpitation Family History Family History Brother Myocardial infarction Maternal Grandmother Myocardial infarction Mother Atrial fibrillation Social History Social History Household Members: Spouse and Children Housing: House Do you presently have visiting nurse or other home services: No Alcohol intake: current Alcohol intake frequency: a few times a month Alcohol type: wine Patient Tobacco Use Status: Former Tobacco user Smoked in Last 30 Days: No Use of substances other than those prescribed or required for medical reasons: No Advance Directives: No Advance Directives Information Provided: Yes Patient : No service: No Current occupational status: unemployed Physical Exam Vital Signs: Vital Signs: Last Vital Signs Temp 98.2 F 08/23/22 15:10 Pulse 61 08/23/22 15:10 Resp 18 08/23/22 15:10 BP 112/70 08/23/22 15:10 Pulse Ox 94 08/23/22 15:10 O2 Del Method Room Air 08/23/22 15:10 BMI result Body Mass Index 26.3 GEN: Well developed, no acute distress, alert, oriented HEENT: Normocephalic, atraumatic, normal external ears, nose appears normal, no oropharyngeal edema or exudates Eyes: Normal to appearance Neck: Supple, no lymphadenopathy Respiratory: Talks in complete sentences, no respiratory distress, clear to auscultation bilaterally Cardiovascular: Regular rate and rhythm, no murmurs rubs or gallops Abdomen: Soft, nontender, nondistended, no guarding, no rebound Back: No CVA tenderness Extremities: No clubbing cyanosis or edema Neurologic: No focal neurologic deficits, cranial nerves 2-12 intact, strength is 5/5 bilaterally Skin: No rash Course Course Course Narrative: RME - 57 yo female with history of glioma, aflutter/afib on BB who presents to the ER for evaluation of intermittent non-radiating left sided chest pains along with left sided numbness that started this morning. Reports history of similar episodes of both complaints. Had ECHO in [place] showing wall motion abnormalities. No current pain. Mild left sided numbness in the face which started an hour ago and is typical of her glioma symptoms. Plan: EKG, CXR, labs Reevaluation(s) Reevaluation #1: Patient's workup is complete. Two sets cardiac enzymes are negative. I refer the patient to auto mechanics instructor. I suspect with a strong family history including a brother with triple-vessel disease, intermittent chest pain, slightly abnormal EKG, patient may be a good candidate for outpatient cardiac catheterization. She was instructed to return for any concerning symptoms. She understood all instructions. All questions were addressed. We discussed all results. Time: 16:05 Medical Decision Making Medical Decision Making [facility] Narrative: 57-year-old female presents with left-sided chest pain. The symptoms are occasionally associated with exertion and sometimes at rest. Her examination is benign. EKG was ordered and reviewed. There are no evidence of acute ischemia. There is no evidence of lower extremity edema at, DVT. She is not hypoxic. I doubt PE as cause of her symptoms. My plan will be to obtain a chest x-ray, cardiac enzymes, routine laboratory analysis. I did reviewed an echocardiogram that was done recently here at [facility]. There were some focal wall abnormalities in the Ampyra basilar and inferolateral velásquez demonstrating some hypokinesis of unclear etiology. As result, I will order a repeat cardiac enzyme to assure ourselves patient is safe for discharge. Differential Diagnosis Differential Diagnoses: The differential diagnosis associated with the presentation includes (Atypical chest pain, cardiac chest pain, angina, muscular skeletal, costochondritis, radiculopathy, anxiety) Chronic chest pain Admission/Observation Consideration of admission/observation: Escalation of care including admission/observation considered (His cardiac enzymes elevate, patient would be considered for admission) Lab Data [facility] Lab Attestation statement: I reviewed the patient's lab results. 08/23/22 13:05 08/23/22 13:05 Labs: Lab Results 08/23/22 08/23/22 08/23/22 Range/Units 13:01 13:05 13:05 WBC 4.8 (4.8-10.8) X10*3/uL RBC 5.47 (4.20-5.50) X10*6/uL Hgb 13.3 (12.0-16.0) g/dl Hct 41.6 (37.0-47.0) % MCV 76.1 L (80.0-98.0) fL MCH 24.3 L (27.0-33.0) pg MCHC 32.0 (31.0-35.0) g/dl RDW 13.9 (11.0-16.0) % Plt Count 210 (160-400) X10*3/uL MPV 10.0 (9.4-12.3) fL Immature Gran % (Auto) 0.4 (0.0-0.4) % Neut % (Auto) 59.7 (45-73) % Lymph % (Auto) 32.9 (20-40) % [place] % (Auto) 5.8 (2-11) % Eos % (Auto) 0.6 (0-4) % Baso % (Auto) 0.6 (0-2) % Lymph # (Auto) 1.6 (1.2-4.9) X10*3/uL [place] # (Auto) 0.3 (0.1-1.2) X10*3/uL Eos # (Auto) 0.0 (0.0-0.4) X10*3/uL Baso # (Auto) 0.0 (0.0-0.2) X10*3/uL Abs Immat Gran (auto) 0.02 (0.00-0.03) X10*3/uL Absolute Neuts (auto) 2.9 (2.0-8.3) x10*3/uL Absolute Nucleated RBC 0.000 (0.0-0.012) X10*3/uL Nucleated RBC % (auto) 0.0 (0.0-0.2) /100WBC PT 10.4 (10.0-13.1) SEC INR 0.9 (0.9-1.1) APTT 31.2 (26.0-36.4) SEC Sodium (135-145) mmol/L Potassium (3.3-5.1) mmol/L Chloride (96-108) mmol/L Carbon Dioxide (22-29) mmol/L Anion Gap (12-20) BUN (9-16) mg/dL Creatinine (0.5-1.4) mg/dL Estim Creat Clear Calc Estimated GFR Random Glucose (60-115) mg/dL Calcium (8.4-10.2) mg/dL Magnesium (1.6-2.6) mg/dL Total Bilirubin (0.0-1.0) mg/dL Direct Bilirubin (0.0-0.5) mg/dL AST (5-31) U/L ALT (0-31) U/L Alkaline Phosphatase (39-117) U/L Troponin I High Sens (<3.5-17.0) ng/L Total Protein (6.5-8.0) g/dL Albumin (3.5-5.0) g/dL Urine Color Yellow Urine Appearance Clear Urine pH 5.5 (5.0-9.0) Ur Specific [place] <= 1.005 (1.005-1.025) Urine Protein Negative (Neg-Trace) mg/dL Urine Glucose (UA) Negative (Negative) mg/dL Urine Ketones Negative (Negative) mg/dL Urine Blood Negative (Negative) Urine Nitrite Negative (Negative) Ur Leukocyte Esterase Negative (Negative) 08/23/22 08/23/22 08/23/22 Range/Units 13:05 13:05 14:52 WBC (4.8-10.8) X10*3/uL RBC (4.20-5.50) X10*6/uL Hgb (12.0-16.0) g/dl Hct (37.0-47.0) % MCV (80.0-98.0) fL MCH (27.0-33.0) pg MCHC (31.0-35.0) g/dl RDW (11.0-16.0) % Plt Count (160-400) X10*3/uL MPV (9.4-12.3) fL Immature Gran % (Auto) (0.0-0.4) % Neut % (Auto) (45-73) % Lymph % (Auto) (20-40) % [place] % (Auto) (2-11) % Eos % (Auto) (0-4) % Baso % (Auto) (0-2) % Lymph # (Auto) (1.2-4.9) X10*3/uL [place] # (Auto) (0.1-1.2) X10*3/uL Eos # (Auto) (0.0-0.4) X10*3/uL Baso # (Auto) (0.0-0.2) X10*3/uL Abs Immat Gran (auto) (0.00-0.03) X10*3/uL Absolute Neuts (auto) (2.0-8.3) x10*3/uL Absolute Nucleated RBC (0.0-0.012) X10*3/uL Nucleated RBC % (auto) (0.0-0.2) /100WBC PT (10.0-13.1) SEC INR (0.9-1.1) APTT (26.0-36.4) SEC Sodium 141 (135-145) mmol/L Potassium 4.2 (3.3-5.1) mmol/L Chloride 103 (96-108) mmol/L Carbon Dioxide 29 (22-29) mmol/L Anion Gap 13 (12-20) BUN 13 (9-16) mg/dL Creatinine 0.76 (0.5-1.4) mg/dL Estim Creat Clear Calc 80.1 Estimated GFR > 60 Random Glucose 115 (60-115) mg/dL Calcium 10.4 H D (8.4-10.2) mg/dL Magnesium 2.1 (1.6-2.6) mg/dL Total Bilirubin 0.8 (0.0-1.0) mg/dL Direct Bilirubin 0.2 (0.0-0.5) mg/dL AST 27 (5-31) U/L ALT 25 (0-31) U/L Alkaline Phosphatase 105 (39-117) U/L Troponin I High Sens < 2.7 < 2.7 (<3.5-17.0) ng/L Total Protein 7.8 (6.5-8.0) g/dL Albumin 4.7 (3.5-5.0) g/dL Urine Color Urine Appearance Urine pH (5.0-9.0) Ur Specific [place] (1.005-1.025) Urine Protein (Neg-Trace) mg/dL Urine Glucose (UA) (Negative) mg/dL Urine Ketones (Negative) mg/dL Urine Blood (Negative) Urine Nitrite (Negative) Ur Leukocyte Esterase (Negative) Independent Interpretation I performed an independent interpretation of an: EKG (Normal sinus rhythm heart rate 66, normal intervals, no acute ST elevations depressions, nonspecific T-wave changes noted in lead V2, 3, aVL.) and Plain X-Ray (No acute cardiopulmonary disease) External Record Review External record reviewed: Outpatient record and Prior outpatient radiology Chronic Conditions Patient?s care impacted by: Other (a fib) Discharge Plan Discharge Clinical Impression: Chest pain Patient Disposition: Home, Self-Care Instructions: Chest Pain (ED) Prescriptions: No Action multivitamin Tablet 1 tab PO DAILY sumatriptan succinate 50 mg tablet 50 mg PO DAILY MRX1 lorazepam 0.5 mg tablet 1 tab PO BID PRN (Reason: anxiety/sleep) cholecalciferol (vitamin D3) 25 mcg (1,000 unit) Tablet 25 mcg PO DAILY Probiotic 10 billion cell Capsule 10,000 mmu cells PO DAILY magnesium oxide 400 mg magnesium Tablet 400 mg PO BID metoprolol succinate 25 mg tablet extended release 24 hr 25 mg PO DAILY Qty: 30 0RF Referrals: Terry Peoples MD [Primary Care Provider] - 5 days Josef Wall MD [Physician] - 1 week
[2022-08-23 13:12] VITALS: BP 128/77; PULSE 71; RESP 18; TEMP 36.6; O2SAT 98; BMI 26.3
[2022-08-23 13:13] LABS: Basophils Percent Auto 0.6 % (0-2); Eosinophils Percent Auto 0.6 % (0-4); Hematocrit 41.6 % (37.0-47.0); Hemoglobin 13.3 g/dl (12.0-16.0); Imm Gran Abs Auto 0.02 X10*3/uL (0.00-0.03); Imm Gran Pct Auto 0.4 % (0.0-0.4); Lymphocytes Absolute Auto 1.6 X10*3/uL (1.2-4.9); Lymphocytes Percent Auto 32.9 % (20-40); Mean Corpuscular Hemoglobin 24.3 pg (27.0-33.0); Mean Corpuscular Volume 76.1 fL (80.0-98.0); Monocytes Absolute Auto 0.3 X10*3/uL (0.1-1.2); Monocytes Percent Auto 5.8 % (2-11); Neutrophils Absolute Auto 2.9 x10*3/uL (2.0-8.3); Neutrophils Percent Auto 59.7 % (45-73); Platelet Count 210 X10*3/uL (160-400); Red Blood Count 5.47 X10*6/uL (4.20-5.50); Red Cell Distribution Width 13.9 % (11.0-16.0); White Blood Count 4.8 X10*3/uL (4.8-10.8)
[2022-08-23 13:13] LABS: Appearance Urine Clear; Color Urine Yellow; Glucose Urine UA Negative (Negative); Leukocyte Esterase Urine Negative (Negative); Nitrite Urine Negative (Negative); PH 5.5 (5.0-9.0); Specific Gravity - Urine <= 1.005 (1.005-1.025); Urine Blood Negative (Negative); Urine Ketones Negative (Negative); Urine Protein Negative (Neg-Trace)
[2022-08-23 13:24] LABS: INTERNATIONAL NORM RATIO 0.9 (0.9-1.1); Prothrombin Time 10.4 SEC (10.0-13.1)
[2022-08-23 13:26] LABS: Partial Thromboplastin Time 31.2 SEC (26.0-36.4)
[2022-08-23 13:49] LABS: Alanine Aminotransferase 25 U/L (0-31); Albumin Level 4.7 g/dL (3.5-5.0); Alkaline Phosphatase 105 U/L (39-117); Anion Gap 13 (12-20); Aspartate Amino Transferase 27 U/L (5-31); Bilirubin Direct 0.2 mg/dL (0.0-0.5); Bilirubin Total 0.8 mg/dL (0.0-1.0); Blood Urea Nitrogen 13 mg/dL (9-16); Calcium 10.4 mg/dL (8.4-10.2); Carbon Dioxide 29 mmol/L (22-29); Chloride 103 mmol/L (96-108); Creatinine Clr Calc Pharmacy 80.1; Estimated Glomerular Filt Rate > 60; Glucose Random 115 mg/dL (60-115); Magnesium 2.1 mg/dL (1.6-2.6); Potassium 4.2 mmol/L (3.3-5.1); Sodium 141 mmol/L (135-145); Total Protein 7.8 g/dL (6.5-8.0)
[2022-08-23 14:03] LABS: Troponin-I High Sensitivity < 2.7 ng/L (<3.5-17.0)
[2022-08-23 14:08] VITALS: BP 123/72; PULSE 64; RESP 16; TEMP 36.8; O2SAT 94
[2022-08-23 15:10] VITALS: BP 112/70; PULSE 61; RESP 18; TEMP 36.8; O2SAT 94
[2022-08-23 15:47] LABS: Troponin-I High Sensitivity < 2.7 ng/L (<3.5-17.0)
== END 2022-08-23 16:19 | disposition home or self-care (01) ==
PROVIDERS: Physician Assistant; Emergency Provider Emergency Medicine; PCP Internal Medicine
DX: R07.9 Chest pain, unspecified (principal); I48.0 Paroxysmal atrial fibrillation; Z79.01 Long term (current) use of anticoagulants
CPT/HCPCS: 36415; 71046; 80048; 80076; 81003; 83735; 84484; 85025; 85610; 85730; 93005; 99283; 99285

== ENCOUNTER 2022-08-25 10:06 | Outpatient (REF) | payer BC, SELFPAY ==
[2022-08-25 11:16] LABS: MANUAL DIFF FLAG NO
[2022-08-25 11:23] LABS: Basophils Percent Auto 0.6 % (0-2); Eosinophils Percent Auto 1.1 % (0-4); Hematocrit 42.9 % (37.0-47.0); Hemoglobin 13.3 g/dl (12.0-16.0); Imm Gran Abs Auto 0.01 X10*3/uL (0.00-0.03); Imm Gran Pct Auto 0.3 % (0.0-0.4); Lymphocytes Absolute Auto 1.3 X10*3/uL (1.2-4.9); Lymphocytes Percent Auto 36.1 % (20-40); Mean Corpuscular Hemoglobin 24.1 pg (27.0-33.0); Mean Corpuscular Volume 77.6 fL (80.0-98.0); Mean Platelet Volume 10.3 fL (9.4-12.3); Monocytes Absolute Auto 0.3 X10*3/uL (0.1-1.2); Neutrophils Percent Auto 54.9 % (45-73); Platelet Count 229 X10*3/uL (160-400); Red Blood Count 5.53 X10*6/uL (4.20-5.50); Red Cell Distribution Width 14.2 % (11.0-16.0); White Blood Count 3.6 X10*3/uL (4.8-10.8)
[2022-08-25 11:54] LABS: Alanine Aminotransferase 25 U/L (0-31); Albumin Level 4.2 g/dL (3.5-5.0); Alkaline Phosphatase 100 U/L (39-117); Anion Gap 8 (12-20); Aspartate Amino Transferase 23 U/L (5-31); Bilirubin Total 0.8 mg/dL (0.0-1.0); Blood Urea Nitrogen 12 mg/dL (9-16); Calcium 9.7 mg/dL (8.4-10.2); Carbon Dioxide 28 mmol/L (22-29); Chloride 105 mmol/L (96-108); Cholesterol 208 mg/dL; Estimated Glomerular Filt Rate > 60; Glucose Random 93 mg/dL (60-115); HDL Cholesterol 51 mg/dL; LDL Cholesterol Calculated 131 mg/dl; Potassium 4.9 mmol/L (3.3-5.1); Sodium 136 mmol/L (135-145); Total Protein 7.3 g/dL (6.5-8.0); Triglycerides 134 mg/dL
[2022-08-25 12:13] LABS: Thyroid Stimulating Hormone 0.72 uIU/mL (0.32-4.0); Vitamin D 25-OH Total 68.6 ng/mL (>30)
== END 2022-08-25 10:07 | disposition home or self-care (01) ==
LOC: HO.HMGCLDS 10:06
PROVIDERS: PCP Internal Medicine; Visit Provider Internal Medicine
DX: E78.00 Pure hypercholesterolemia, unspecified (principal); E55.9 Vitamin D deficiency, unspecified
CPT/HCPCS: 36415; 80053; 80061; 82306; 84443; 85025

== ENCOUNTER 2024-09-01 14:34 | Emergency (ER) | payer BC, SELFPAY ==
[2024-09-01 14:36] VITALS: BP 146/78; PULSE 71; RESP 18; TEMP 36.3; O2SAT 99; BMI 25.1
--- NOTE | 2024-09-01 14:36 | ED.GENADULT ---
HPI - General Adult General Chief complaint: Head Injury Stated complaint: fall head inj Time Seen by Provider: 09/01/24 15:53 Source: patient Mode of arrival: ambulatory Limitations: no limitations History of Present Illness ED Provider: Manuela Torres PA-C HPI narrative: Patient is a 59 year old assigned female at with a history of numerous cancers including removal of brain tumors x2 presenting to the emergency department today with a left eyebrow laceration. Patient states that she slipped / tripped and fell face first on her hardwood floors. Patient denies any anti-coagulation medication and loss of consciousness. Patient states she is concerned about scarring of her wound. Relieving factors: none Exacerbating factors: none Associated symptoms: denies other symptoms Treatments prior to arrival: none Related Data Home Medications ?Medication ?Instructions ?Recorded ?Confirmed Lactobacillus acidophilus 10 10,000 mmu cells PO DAILY 05/17/22 05/17/22 billion cell capsule (Probiotic) cholecalciferol (vitamin D3) 25 25 mcg PO DAILY 05/17/22 05/17/22 mcg (1,000 unit) tablet lorazepam 0.5 mg tablet 1 tab PO BID PRN anxiety/sleep 05/17/22 05/17/22 magnesium oxide 400 mg PO BID 05/17/22 05/17/22 multivitamin 1 tab PO DAILY 05/17/22 05/17/22 sumatriptan succinate 50 mg tablet 50 mg PO DAILY MRX1 05/17/22 05/17/22 Previous Rx's ?Medication ?Instructions ?Recorded metoprolol succinate 25 mg 25 mg PO DAILY #30 tabs 05/18/22 tablet,extended release 24 hr Allergies Allergy/AdvReac Type Severity Reaction Status Date / Time No Known Allergies Allergy Verified 09/01/24 14:39 Review of Systems Constitutional: Constitutional: Reports no additional constitutional complaints, Denies chills, Denies fever(s), Reports headache(s) and Denies night sweats Eyes: Eyes: Reports no additional eye complaints, Denies blurry vision, Denies change in vision, Denies diplopia, Denies eye discharge, Denies loss of vision and Denies eye pain ENT: Denies dizziness and Reports headache(s) Comments: left eye brow laceration Cardiovascular: Cardiovascular: Reports no additional cardiovascular complaints, Denies chest pain, Denies lightheadedness, Denies Loss of Consciousness and Denies dyspnea Respiratory: Respiratory: Reports no additional respiratory complaints and Denies dyspnea Gastrointestinal: Gastrointestinal: Reports no additional gastrointestinal complaints, Denies abdominal pain, Denies melena, Denies hematochezia, Denies change in bowel habits and Denies change in stool character Genitourinary: Genitourinary: Denies hematuria, Denies urinary frequency, Denies dysuria, Denies urinary incontinence, Denies urinary hesitancy and Denies urinary urgency Musculoskeletal: Musculoskeletal: Reports no additional musculoskeletal complaints, Denies numbness and Denies tingling Neurologic: Denies dizziness, Reports headache(s), Denies loss of vision, Denies numbness and Denies tingling Psychiatric: Psychiatric: Reports no additional psychiatric complaints Endocrine: Endocrine: Reports no additional endocrine complaints Hematologic/Lymphatic: Hematologic/Lymphatic: Reports no additional hematologic/lymphatic complaints Allergic/Immunologic: Allergic/Immunologic: Reports no additional allergic/immunologic complaints PMFSH Past Medical History Attestation statement: The following information was validated with the patient. Source: old records reviewed and nursing notes reviewed Medical History Palpitation Glioma of brain Breast cancer Family History Family History Brother Myocardial infarction Maternal Grandmother Myocardial infarction Mother Atrial fibrillation Social History Social History Household Members: Spouse and Children Housing: House Do you presently have visiting nurse or other home services: No Alcohol intake: current Alcohol intake frequency: a few times a month Alcohol type: wine Patient Tobacco Use Status: Former Tobacco user Advance Directives: No Advance Directives Information Provided: No service: No Current occupational status: unemployed Physical Exam ED Vital Signs: Vital Signs - 24 hr 09/01/24 14:36 09/01/24 15:50 09/01/24 16:21 Temperature 97.3 F 98.8 F 98.8 F Pulse Rate 71 62 62 Respiratory Rate 18 14 14 Blood Pressure 146/78 H 128/74 128/74 Pulse Oximetry 99 98 98 Oxygen Delivery Method Room Air Room Air Room Air BMI result Body Mass Index 25.1 Const General: cooperative, no acute distress, alert and awake Nutritional Appearance: well nourished Orientation/consciousness: patient oriented x3 HENMT Head: Yes atraumatic Ears: hearing grossly normal bilaterally and external ears normal General nose exam: Normal external nose present, no nasal discharge noted and no epistaxis Face images:  1. 1cm laceration - well approximated, no gaping, no active bleeding Mouth: Normal oral and palatal mucosa present, no drooling and no muffled voice Eyes General: appearance normal, both eyes and all related structures Periorbital: periorbital findings normal Eyelids: Yes eyelids normal Conjunctivae: conjunctivae normal Pupils: Equal, round and reactive pupils present EOM: EOMs intact bilaterally Neck Neck: Yes normal visual inspection, Yes full ROM and Yes no lymphadenopathy Resp Effort & Inspection: normal respiratory effort and able to speak in complete sentences Neuro General: patient oriented x3, moves all extremities and CN's II-XI intact bilaterally Cranial nerves: Yes Equal, round and reactive pupils present Cognition (Neuro): normal cognition Extrem General: Yes normal to inspection, Yes full ROM and Yes capillary refill normal Psych Appearance: grossly normal Mental Status: mental status grossly normal Affect: normal affect Attitude: cooperative Thought process: Normal thought process present Thought content: Normal thought content present Insight: Good insight present (Psych) Course Course Course Narrative: RME performed by Manuela Torres PA-C. Patient is a 59 year old assigned female at presenting to the emergency department with a left forehead laceration after a slip and fall. Detailed physical exam and review of systems are deferred to the developer advisor. Patient placed back in the waiting room pending room availability. Procedures Laceration Laceration 1: Site: other (eyebrow) Side (If applicable): left Size (cm): 1 Description: linear Depth: simple, single layer Pre-repair: deep structures intact Skin layer closed with: other (dermabond) Size (cm): other (dermabond) Technique: other (dermabond) Medical Decision Making Medical Decision Making MDM Narrative: Patient is a 59 year old assigned female at with a history of numerous cancers including removal of brain tumors x2 presenting to the emergency department today with a left eyebrow laceration. Patient's physical exam was as noted in the physical exam portion of this note. I explained my physical exam findings to the patient. I answered all questions asked by the patient. Patient's left eyebrow laceration was repaired with dermabond, without incident. I stressed the importance of the patient taking her medication as directed (either prescribed or as the over the counter packaging recommends). I stressed the importance of the patient following up with her primary care provider. I stressed the importance of the patient returning to the emergency department immediately if her symptoms were to worsen or if she were to develop any dizziness, shortness of breath, difficulty breathing, chest pain, blurry vision, loss of vision, nausea, vomiting, abdominal pain, fever, chills, back pain, or any other complaints. Patient verbalized agreement and understanding with this treatment plan and discharge. Differential Diagnosis Differential Diagnoses: The differential diagnosis associated with the presentation includes Eyebrow laceration Fall Admission/Observation Consideration of admission/observation: Escalation of care including admission/observation considered Patient would have been admitted to the hospital had her clinical presentation warranted hospital admission. Tests considered The following testing was considered but not selected: I considered obtaining a CT scan of the head and face however, the patient's current clinical presentation, mechanism of injury, and medical history did not warrant this. I discussed this with the patient who verbalized understanding and agreement. Discharge Plan Discharge Clinical Impression: Eyebrow laceration Patient Disposition: Home, Self-Care Instructions: Skin Adhesive Care (ED), Facial Laceration (ED) Additional Instructions: Do NOT get the affected area wet for at LEAST 7 days. Once the glue and scabbing falls away - apply sunscreen (spf 30 or greater) to the area EVERY DAY for at LEAST 1 YEAR to mitigate scarring. Follow up with your primary care provider. Return to the emergency department immediately if your symptoms worsen or if you develop any numbness, tingling, dizziness, shortness of breath, difficulty breathing, chest pain, blurry vision, loss of vision, nausea, vomiting, abdominal pain, fever, chills, back pain, or any other complaints. Please see the information below about our Patient Portal. If you are not yet enrolled in the [facility] Patient Portal, you will receive an enrollment email invitation following your visit to any [facility] care setting. You may also self-enroll in the Patient Portal by visiting our website: [email or web address] The following information is required to access the Patient Portal: - Your [facility] [place] Record Number - Your personal home email address (must match what is in your electronic medical record, Registration staff can assist with this) - Name - Date of Capabilities of the Patient Portal: - Message some providers - View upcoming appointments - Access your health summary, medical history, and visit history - View current conditions and allergies - View procedure and lab results - View your medications, including guidelines, side effects, and precautions - Complete pre-appointment questionnaires requested by your provider - Ready summary reports of your office visits and procedures To access the Patient Portal Mobile [place], follow these directions: - Search [email or web address] in the [employer] Store or [employer] Store - Download the [place] - Search for [facility] - Enter your login/password Prescriptions: No Action multivitamin Tablet 1 tab PO DAILY sumatriptan succinate 50 mg tablet 50 mg PO DAILY MRX1 lorazepam 0.5 mg tablet 1 tab PO BID PRN (Reason: anxiety/sleep) cholecalciferol (vitamin D3) 25 mcg (1,000 unit) Tablet 25 mcg PO DAILY Probiotic 10 billion cell Capsule 10,000 mmu cells PO DAILY magnesium oxide 400 mg magnesium Tablet 400 mg PO BID metoprolol succinate 25 mg tablet extended release 24 hr 25 mg PO DAILY Qty: 30 0RF Referrals: Terry Peoples MD [Primary Care Provider, Internal Medicine] Interventions: ED Discharge Assessment Last Done: 09/01/24 16:21 Discharge Date/Time: 09/01/24 16:22 Print Language: Com[place]an
[2024-09-01 15:50] VITALS: BP 128/74; PULSE 62; RESP 14; TEMP 37.1; O2SAT 98
--- OUTSIDE RECORDS SUMMARY | 2024-09-01 16:05 | XMS_ITS | Patient Health Record ---
Author Organization [facility] Address [address] [place] [address] Care Team Providers Care Welder Apprentice Arc Name Role Phone Terry Peoples MD Primary Care Provider Elsa Kim Unavailable [phone] Allergies No Known Allergies Results Component Value Reference Range Notes Urinalysis Reviewed date:12/20/2023 11:30:48 AM Interpretation: Performing Lab: Notes/Report: PH 5.0 PROTEIN NEG GLUCOSE NEG BLOOD NEG [id number] IGP No Culture 30 Plus Reviewed date:12/24/2023 11:39:35 PM Interpretation: Performing Lab:[facility], [address], [address], [place], Phone - [phone], Director - [facility] Notes/Report: Clinical Information:[id number] Dates / Results....03/13/20 NIL Other..............Post Menopausal No. of containers..01 ThinPrep Vial DIAGNOSIS: NEGATIVE FOR INTRAEPITHELIAL LESION OR MALIGNANCY. CELLULAR CHANGES ASSOCIATED WITH ATROPHY ARE PRESENT. Specimen adequacy: Satisfactory for evaluation. Endocervical component may not be distinguished in cases of atrophy. Clinician provided ICD10: Z0 1.419 Performed by: Chiki san, Metal Sander And Finisher (ASCP) . . Note: The Pap smear is a screening test designed to aid in the detection of premalignant and malignant conditions of the uterine cervix. It is not a diagnostic procedure and should not be used as the sole means of detecting cervical cancer. Both false-positive and false-negative reports do occur. . Test Methodology: This liquid based ThinPrep(R) pap test was screened with the use of an image guided system. HPV Aptima Negative Negative This nucleic acid amplification test detects fourteen high-risk HPV types (16,18,31,33,35,39,45,51,52,56 ,58,59,66,68) without differentiation. HPV Genotype Reflex Criteria not met, HPV Genotype not performed. PDF Report Reviewed date:12/24/2023 11:39:17 PM Interpretation: Performing Lab:[facility], [address], [address], [place], Phone - [phone], Director - Tatyana Notes/Report: Clinical Information:[id number] Dates / Results....03/13/20 NIL Other..............Post Menopausal No. of containers..01 ThinPrep Vial Urinalysis Reviewed date:01/06/2024 12:49:18 PM Interpretation: Performing Lab: Notes/Report: NITRITE Neg PH 6.0 PROTEIN Small S.G 1.000 WBC Trace GLUCOSE Neg KETONES Neg UROBILINOGEN Neg BILIRUBIN Neg BLOOD Trace Urinalysis, Complete-[id number] Reviewed date:01/08/2024 12:22:07 AM Interpretation: Performing Lab:[facility], [address] [facility], Phone - [phone], Director - Etienne Notes/Report: Clinical Information:SRC: URINE Clinical Information:SRC: URINE Specific [place] <=1.005 1.005-1.030 pH 7.5 5.0-7.5 Urine-Color Yellow Yellow Appearance Clear Clear WBC Esterase Negative Negative Protein Negative Negative/Trace Glucose Negative Negative Ketones Negative Negative Occult Blood Negative Negative Bilirubin Negative Negative Urobilinogen,Semi-Qn 0.2 0.2-1.0 mg/dL Nitrite, Urine Negative Negative Microscopic Examination Micr oscopic follows if indicated. Microscopic Examination See below: Micr oscopic was indicated and was performed. WBC None seen 0 - 5 /hpf RBC None seen 0 - 2 /hpf Epithelial Cells (non renal) None seen 0 - 10 /hpf Casts None seen None seen /lpf Bacteria None seen None seen/Few Urine Culture, Routine-[id number] Reviewed date:01/08/2024 12:21:50 AM Interpretation: Performing Lab:[facility], [address] [facility], [place], Phone - [phone], Director - Etienne Notes/Report: Clinical Information:SRC: URINE Clinical Information:SRC: URINE Urine Culture, Routine Final report Result 1 No growth PDF Report Reviewed date:01/08/2024 12:21:37 AM Interpretation: Performing Lab:[facility], [address], [place], Phone - [phone], Director - Etienne Notes/Report: Clinical Information:SRC: URINE Reason For Referral No Information Medications Medication SIG (Take, Route, Frequency, Duration) Notes Start Date End Date Status Metoprolol Succinate ER 25 MG Oral; Duration: 30 I483,Unavailabl e Active SUMAtriptan Succinate 50 MG Oral; Duration: 30 Active Probiotic - as directed Orally Active Centrum Silver 50+Women - Orally Active Social History Tobacco Use: Social History Observation Description Date Details (start date - stop date) Former Smoker NA - NA Tobacco Use/Smoking Question Answer Notes Are you a former smoker How long has it been since you last smoked? > 10 years Alcohol Screen (Audit-C) Question Answer Notes Did you have a drink contain ing alcohol in the past year? Yes How often did you have a dri nk containing alcohol in the past year? 2 to 4 times a month (2 points) How many drinks did you have on a typical day when you were drinking in the past year? 1 or 2 drinks (0 point) Points 2 Interpretation Negative Sexual History Question Answer Notes Had sex in the past 12 months (vaginal, oral, or anal)? Yes with Men only Prevention strategies discussed: Other Section Notes: MARITAL STATUS: CHILDREN: 1 child LIVES WITH: spouse OCCUPATION: stay at home mom NUTRITION: average diet EXERCISE: regular walking SEXUALACTIVITY: monogamous relationship. CONTRACEPTION: none .CE: Smoking: Former smoker .CE: ALCOHOL: socially drinks alcohol TEXT MESSAGING WHILE DRIVING: no SUNSCREEN: yes ILLICIT DRUGS: no SEATBEALT: yes MARITAL STATUS: CHILDREN: 1 child LIVES WITH: spouse OCCUPATION: stay at home mom NUTRITION: average diet EXERCISE: regular walking SEXUALACTIVITY: monogamous relationship. CONTRACEPTION: none .CE: Smoking: Former smoker .CE: ALCOHOL: socially drinks alcohol TEXT MESSAGING WHILE DRIVING: no SUNSCREEN: yes ILLICIT DRUGS: no SEATBEALT: yes Problems Problem Type SNOMED Code ICD Code Onset Dates Problem Status W/U Status Risk Notes Problem Postmenopausal atrophic vaginitis (69873419) Postmenopausal atrophic vaginitis (N95.2) Active confirmed Problem Postmenopausal bleeding (21523542) Postmenopausal bleeding (N95.0) Active confirmed Problem Malignant neoplasm of female breast (666102219) Malignant neoplasm of unspecified site of right female breast (C50.911) Active confirmed Problem Malignant neoplasm of brain (648840363) Malignant neoplasm of brain, unspecified (C71.9) Active confirmed Problem Atrial fibrillation (08049158) Unspecified atrial fibrillation (I48.91) Active confirmed Problem Atrial flutter (2829885) Unspecified atrial flutter (I48.92) Active confirmed Problem Personal history of primary malignant neoplasm of breast (730806578) Personal history of malignant neoplasm of breast (Z85.3) Active confirmed Problem Candidal vulvovaginitis (70405450) Candidiasis of vulva and vagina (112.1) Active confirmed Other Problem Malignant neoplasm of female breast (887090388) Malignant neoplasm of other specified sites of female breast (174.8) Active confirmed Diag Problem Neurofibromatosis (91640148) Neurofibromatosis , 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) Active confirmed Major Problem Migraine (disorder) (05388715) Migraine, unspecified without mention of intractable migraine without mention of status migrainosus (346.90) Active confirmed Major Problem Gynecological examination normal (297111290425919) Routine gynecological examination (V72.31) Active confirmed Major Vital Signs Temperature 97.7 degrees Fahrenheit 01/06/2024 Blood pressure diastolic 68 mm Hg 01/06/2024 Height 64.75 in 01/06/2024 Blood pressure systolic 100 mm Hg 01/06/2024 Weight 154 lbs 01/06/2024 BMI 25.82 kg/m2 01/06/2024 Encounters Encounter Location Date Provider Diagnosis [employer] [address] [place] [address] 12/20/2023 Elsa De Santiago Encounter for gynecological examination (general) (routine) without abnormal findings Z01.419 ; Encounter for screening mammogram for malignant neoplasm of breast Z12.31 ; Feeling of incomplete bladder emptying R39.14 and Personal history of malignant neoplasm of breast Z85.3 [employer] [address] [place] [address] 01/06/2024 Elsa Riggsueva Feeling of incomplet e bladder emptying R39.[address] [place] [address] 01/06/2024 Elsa De Santiago Feeling of incomplet e bladder emptying R39.14 Assessments Encounter Date Diagnosis (ICD Code) Assessment Notes Treatment Notes Treatment Clinical Notes Section Notes 12/20/2023 Encounter for gynecological examination (general) (routine) without abnormal findings (ICD-10 - Z01.419) PAP TEST WITH HPV TYPING WAS OBTAINED. 01/06/2024 Feeling of incomplete bladder emptying (ICD-10 - R39.14) DISCUSSED RESULTS OF ULTRASOUND STUDY TO MEASURE RESIDUAL URINE. IT IS EQUIVOCAL AT 164ML. REFER TO [facility] FOR FURTHER EVALUATION AND MX. IF SHE HAS NOT RECEIVED A CALL BACK IN 10 DAYS, CALL US BACK. OFFICIAL UA AND URINE C/S WERE ORDERED. 01/06/2024 Feeling of incomplete bladder emptying (ICD-10 - R39.14) 12/20/2023 Encounter for screening mammogram for malignant neoplasm of breast (ICD-10 - Z12.31) REGULAR MAMMOGRAMS AND SBE'S WERE RECOMMENDED. 12/20/2023 Feeling of incomplete bladder emptying (ICD-10 - R39.14) DISCUSSED COMMON CAUSES OF INCOMPLETE EMPTYING OF BLADDER. PELVIC ULTRASOUND TO MEASURE RESIDUAL URINE WAS ORDERED. IF HER RESIDUAL IS LARGE, WILL REFER TO URO-GYNECOLOGI ST. 12/20/2023 Personal history of malignant neoplasm of breast (ICD-10 - Z85.3) PAT HAS BEEN DOING WELL. CONTINUE FOLLOW UP AT [facility]. Plan Of Treatment Pending Test Test Name Order Date Sonohysterogram 11/13/2018 Urinalysis 11/02/2016 Urinalysis 03/13/2020 ENDOMETRIAL BX 11/13/2018 THIN PREP,HPV, CT/GC (>29YR)(SCRN) 11/02 MM Digital Mammo Screening 03/13/2020 MM Digital Mammo Screening 07/15/2022 MM Digital Mammo Screening 12/20/2023 ULTRASOUND: PELVIC W/TRANSVAGINAL 2017 Insurance Providers Payer Name Payer Address Payer Phone Subscriber Number Group Number Insured Name Patient Relationship to Insured Coverage Start Date Coverage End Date [employer] [address] [place] [address] [id number] CARRIE EWING Spouse - patient is the spouse of the insured Medical (General) History Medical History History ICD Code Migraine, unspecified, not intractable, without status migrainosus G43.909 Neurofibromatosis, unspecified Q85.00 Malignant neoplasm of overlapping sites of right female breast C50.811 Postmenopausal atrophic vaginitis N95.2 Malignant neoplasm of brain, unspecified C71.9 Postmenopausal bleeding N95.0 Unspecified atrial fibrillation I48.91 Unspecified atrial flutter I48.92 Nonscarring hair loss, unspecified L65.9 Surgical History Surgery Date(Month/Year) Craniotomy and Brain Tumor Rescection x 1 Right Breast Biopsy Tonsillectomy S/P Right Masctectomy Colonoscopy Hospitalization History Reason Date(Month/Year) See Surgical Hx
[2024-09-01 16:21] VITALS: BP 128/74; PULSE 62; RESP 14; TEMP 37.1; O2SAT 98
== END 2024-09-01 16:22 | disposition home or self-care (01) ==
PROVIDERS: Emergency Provider Emergency Medicine; PCP Internal Medicine
DX: S01.112A Laceration without foreign body of left eyelid and periocular area, initial encounter (principal); W01.0XXA Fall on same level from slipping, tripping and stumbling without subsequent striking against object, initial encounter; Y93.9 Activity, unspecified; Y92.9 Unspecified place or not applicable; Y99.9 Unspecified external cause status
CPT/HCPCS: 12011; 99282